=== PATIENT | male | born 1950 | race Caucasian/White ===

== ENCOUNTER 2024-10-25 07:37 | Outpatient (CLI) | payer MEDICARE, SELFPAY | END 2024-10-25 23:59 | disposition home or self-care (01) | LOC: LAB.DROPOF 10-26 07:37 | PROVIDERS: PCP Nurse Practitioner; Visit Provider Nurse Practitioner | DX: R35.0 Frequency of micturition (principal) | CPT/HCPCS: 87086 ==

== ENCOUNTER 2024-12-12 16:07 | Outpatient (CLI) | payer MEDICARE, SELFPAY ==
[2024-12-12 13:48] LABS: Microscopic, Urine URINE MICROSCOPIC (MICROSCOPIC)
[2024-12-12 14:34] LABS: Basophils % 0.5 % (0.1-2.0); Eosinophils # 0.2 Kmm3 (0.0-0.4); Eosinophils % 2.9 % (0.1-12.0); Immature Granulocytes # 0.02 10^3uL; Immature Granulocytes % 0.2 %; Lymphocytes # 1.8 K/mm3 (0.7-4.5); Lymphocytes % 21.5 % (10-50); Mean Corpuscular Hemoglobin 28.2 pg (27.0-31.2); Mean Platelet Volume 11.7 fl (7.4-10.4); Monocytes # 0.8 K/mm3 (0.1-1.0); Monocytes % 9.8 % (1.7-9.3); Neutrophils # 5.4 K/mm3 (1.8-7.8); Neutrophils % 65.1 % (37.0-80.0); Nucleated Red Blood Cells # 0 10^3/uL; Nucleated Red Blood Cells % 0 %; Platelet Count 227 K/mm3 (142-424); Red Blood Count 5.68 M/mm3 (4.60-6.20); Red Cell Distribution Width 14.2 % (11.5-17.5); Red Cell Distribution Width-SD 45.6 fL; White Blood Count 8.2 K/mm3 (4.8-10.8)
[2024-12-12 14:46] LABS: Appearance,Urine SL CLOUDY (Clear); Bilirubin,Urine Negative (Negative); Blood, Urine 2+ (Negative); Color,Urine YELLOW (Yellow); Glucose,Urine (UA) Negative (Negative); Ketones,Urine Negative (Negative); Leukocyte Esterase,Urine TRACE (Negative); Nitrate,Urine Negative (Negative); Protein,Urine 2+ (Negative); Urobilinogen,Urine 0.2 EU/dl (0.2)
[2024-12-12 14:48] LABS: Albumin Level 4.7 g/dl (3.5-5.0); Chloride 109 mmol/L (98-107); Potassium 4.4 mmoL/L (3.5-5.1); Sodium 142 mmol/L (136-145)
[2024-12-12 14:51] LABS: Alanine Aminotransferase 26 U/L (12-78); Alkaline Phosphatase 102 U/L (38-126); Anion Gap 13.4 mEq/L (5-15); Aspartate Amino Transferase 27 U/L (17-59); Bilirubin,Total 0.7 mg/dl (0.2-1.3); Blood Urea Nitrogen 31 mg/dl (9-20); Calcium 10.7 mg/dl (8.4-10.2); Carbon Dioxide 24 mmol/L (22.0-30.0); Estimated Glomerular Filt Rate 59 ml/min (>60); GFR (African American) 72 ML/MIN (>60); Globulin 2.3 g/dL (1.3-3.2); Glucose 132 mg/dl (74-100)
[2024-12-12 14:54] LABS: Specific Gravity, Urine >= 1.030 (1.005-1.030)
[2024-12-12 15:01] LABS: Creatinine,Urine Random 189 mg/dL (Not Estab.)
[2024-12-12 15:33] LABS: Hemoglobin A1C 6.3 % (4.0-6.0)
[2024-12-12 15:35] LABS: Bacteria,Urine 1+ /lpf; Uric Acid Crystals,Urine 4+ /lpf; WBC,Urine Occasional #/hpf (0-3)
[2024-12-12 15:52] LABS: Microalbumin/Creatinine Ratio 458.1
== END 2024-12-12 23:59 | disposition home or self-care (01) ==
LOC: LAB.DROPOF 16:07
PROVIDERS: PCP Internal Medicine; Visit Provider Internal Medicine
DX: Z13.1 Encounter for screening for diabetes mellitus (principal); R30.0 Dysuria; R31.9 Hematuria, unspecified; Z00.00 Encounter for general adult medical examination without abnormal findings
CPT/HCPCS: 80053; 81001; 82043; 82570; 83036; 85025; 87086

== ENCOUNTER 2024-12-27 08:53 | Outpatient (CLI) | payer MEDICARE, SELFPAY ==
--- OUTSIDE RECORDS SUMMARY | 2024-12-27 08:56 | XMS_ITS | Clinical Summary ---
Author Organization Healthcare Address [address] 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 Name Role Phone Eh Palomino DO Primary Care Provider [phone] Social History Tobacco Use Types Packs/Day Years Used Date Smoking Tobacco: Never Assessed Sex and Gender Information Value Date Recorded Sex Assigned at Not on file Legal Sex Male 7:32 PM EDT Gender Identity Not on file Sexual Orientation Not on file Plan of Treatment Upcoming Encounters Date Type Department Care Team (Late st Contact Info) Description 03/10/2025 11:00 AM EDT Office Visit [facility] [address] [facility] [facility], [address] [place] [address] Lavon Tavares MD [address] [place] [phone] Health Maintenance Due Date Last Done Comments [facility]-Depression Screening 1949 [facility]-Hepatitis C Screening 1949 [facility]-Infant/Child/Adol SDOH Screenings 1949 [facility]- SDOH Screenings 12/21/1967 [facility]-Adult SDOH Screenings 12/21/1967 [facility]-DTaP,Tdap,and Td Vaccine s (1 - Tdap) 1968 CT Colonography 1994 Colonoscopy 1994 FIT-DNA 1994 FIT 1994 FOBT 1994 Sigmoidoscopy 1994 [facility]-Colorectal Cancer Screening 1994 [facility]-Pneumococcal Vaccine: 50 + Years (1 of 1 - PCV) 12/21/1999 [facility]-Zoster Vaccines (1 of 2) 12/21/1999 [facility]-BEUCG-20 Vaccine (1 - 20 24-25 season) 2024 [facility]-RSV Vaccine: 60+ Years o r (1 - 1-dose 75+ series) 2024 [facility]-Influenza Vaccine (Seaso n Ended) 2025 HPV Vaccines Aged Out No longer eligi ble based on patient's age to complete this topic [facility]-HIB Vaccines Aged Out No longer e ligible based on patient's age to complete this topic [facility]-Hepatitis A Vaccines Aged Out No longer eligible based on patient's age to complete this topic [facility]-IPV Vaccines Aged Out No longer e ligible based on patient's age to complete this topic [facility]-Rotavirus Vaccines Aged Out No lo nger eligible based on patient's age to complete this topic Care Teams Dry Cell And Battery Assembler Relationship Specialty Start Date End Date Eh Palomino DO [address] [place] [address] [place] [address] PCP - General 12/25/24
[2024-12-27] MEDS: IOPAMIDOL-370 (76%);100ML BOTTLE 90 ML IV (09:29)
[2024-12-27] MEDS: IOPAMIDOL-370 (76%);100ML BOTTLE 60 ML IV (09:29)
[2024-12-27] MEDS: SODIUM CHLORIDE 0.9% 10ML SYR (RAD ONLY) 10 ML IV (09:29)
--- NOTE | 2024-12-27 09:54 | CT_ITS ---
FINAL REPORT TECHNIQUE: Axial CT of the abdomen and pelvis, without and with IV contrast. This study was performed with techniques to keep radiation doses as low as reasonably achievable, (ALARA). Individualized dose reduction techniques using automated exposure control or adjustment of mA and/or kV according to the patient's size were employed. CLINICAL HISTORY: UROGRAM COMPARISON: None FINDINGS: CT ABDOMEN PELVIS WITH AND WITHOUT CONTRAST: Abdomen: Lung bases are clear. Fatty infiltration of the liver is present. Cholelithiasis is present. The spleen, pancreas and adrenal glands are unremarkable. Precontrast imaging shows no renal stone disease. In the upper pole of the left kidney there is a renal mass measuring 19 mm in size without enhancement, consistent with a cyst. There is a posterior left renal mass measuring 6 mm in size, too small to definitively characterize, however most likely represents a cyst. There is a small parapelvic cyst in the lower pole of the right kidney. No bowel obstruction or fluid collection is seen. Pelvis: The appendix is normal in appearance. Mild diverticulosis is noted. Pelvic bowel loops are otherwise unremarkable. Opacification of the distal ureters is unremarkable. There is moderate enlargement of the prostate. There is moderate bladder wall thickening measuring up to 6 mm in diameter, that may represent cystitis. Small bilateral inguinal hernias are present containing fat. No fluid collection or adenopathy is seen. IMPRESSION: 1. No upper urinary tract obstruction or filling defect. 2. Left renal mass, 19 mm, without enhancement consistent with a cyst. A posterior left 6 mm renal mass is too small to definitively characterize without contrast but also likely represents a renal cyst. 3. Moderate bladder wall thickening up to 6 mm is present, concerning for cystitis. Reviewed, Interpreted and Dictated by Zully Hull MD Transcribed by Manuela Bean Authenticated and [facility]
== END 2024-12-27 23:59 | disposition home or self-care (01) ==
LOC: RAD 08:54
PROVIDERS: PCP Internal Medicine; Visit Provider Internal Medicine
DX: N28.1 Cyst of kidney, acquired (principal); N28.89 Other specified disorders of kidney and ureter; R93.41 Abnormal radiologic findings on diagnostic imaging of renal pelvis, ureter, or bladder; R80.9 Proteinuria, unspecified; R31.9 Hematuria, unspecified
CPT/HCPCS: 74178; Q9967

== ENCOUNTER 2025-03-27 13:35 | Outpatient (CLI) | payer MEDICARE, SELFPAY ==
[2025-03-27 16:01] LABS: Prostate Specific Ag, Diagnost 2.44 ng/ml (0.0-4.0)
== END 2025-03-27 23:59 | disposition home or self-care (01) ==
LOC: LAB 13:36
PROVIDERS: PCP Internal Medicine; Visit Provider Urology
DX: N41.0 Acute prostatitis (principal)
CPT/HCPCS: 36415; 84153

== ENCOUNTER 2025-05-07 01:54 | Emergency (ER) | payer MEDICARE, SELFPAY ==
--- OUTSIDE RECORDS SUMMARY | 2025-05-02 22:03 | XMS_ITS | Continuity of Care Document ---
Author Organization [facility] Phone Care Team Providers Care Supervisor Vat House Name Role Phone FREDY COATES Surgeon FREDY COATES Primary Attending DENISSE HARRIS Primary Care Unavailable FREDY COATES Admitting ALLERGIES AND ADVERSE REACTIONS ALLERGIES AND ADVERSE REACTIONS Code System Allergy Substance Adverse Reaction Date Reaction (Severity) Comment Status Reported By Updated By No Known Allergies [id number] on April 30, 2025 12:45:45 PM UT ASSESSMENTS Urinary bladder stone ; FAMILY HISTORY RELATION: Father Status: Cause of : Suicide Age at : 58 SNOMED-CT Diagnosis Age At Onset Information not available RELATION: Mother Status: Cause of : Abdominal aortic aneurysm Age at : Unknown SNOMED-CT Diagnosis Age At Onset Information not available RELATION: Brother Status: Cause of : Leukemia Age at : 40 SNOMED-CT Diagnosis Age At Onset Information not available PROBLEMS PATIENT PROBLEMS Code Description/Comments Category Status Upda delicia By [id number] Urinary bladder stone active [id number] on April 28, 2025 4:13:02 PM [facility] TREATMENT PLAN DISCHARGE MEDICATIONS Status RXNORM Medication Dose Route Frequency Dates Comments U pdated By Continued [id number] Cefdinir Oral Capsule 300 MG 1 TAB ORAL TWICE A DAY Prescribe d: April 28, 2025 4:11:16 PM UT [id number] on April 28, 2025 4:11:16 PM UT Continued [id number] Pyridium Oral Tablet 200 MG 1 TAB ORAL EVERY EIGHT HOURS NEEDED Prescribe d: April 28, 2025 4:11:16 PM UT [id number] on April 28, 2025 4:11:16 PM [facility] Continued [id number] traMADol HCl Oral Tablet 50 MG 1 TAB ORAL EVERY SIX HOURS NEEDED Prescribe d: April 28, 2025 4:11:16 PM UT [id number] on April 28, 2025 4:11:16 PM [facility] PATIENT OPEN ORDERS Code System Descripti on Frequency Occurrenc es Priority Category Start Date Ordering Physician Updated By [id number] DEVI Color of Stone ONE TIME 0 Routine April 28, 2025 5:39:00 PM [facility] ART FREDY Jean [id number] on April 28, 2025 5:41:00 PM [facility] SCHEDULED PROCEDURES Code System Description Status Scheduled Date Upd ated By Patient scheduled procedure information is not available. MEDICATIONS HOME MEDICATIONS Status RXNORM [facility] Medication Dose Route Frequency Dates Comments Reported By Updated By Patient not on Self-Medications [id number] on April 28, 2025 12:50:38 PM [facility] DISCHARGE MEDICATIONS Status RXNORM [facility] Medication Dose Route Frequency Dates Dis pense Data Comments Physician Updated By [facility] ed [id number] Cefdinir Oral Capsule 300 MG 1.0 TAB ORAL TWICE A DAY Prescr ibed: [facility] 2024 4:11:1 6 PM [facility] ART FREDY Jean PHY [id number] on April 28, 2025 4:11:16 PM [facility] Continu ed [id number] [id number] 201 Pyridium Oral Tablet 200 MG 1.0 TAB ORAL EVERY EIGHT HOURS NEEDED Prescr ibed: [facility] 2024 4:11:1 6 PM [facility] ART FREDY Jean PHY [id number] on April 28, 2025 4:11:16 PM [facility] Continu ed [id number] 4037 708 traMADol HCl Oral Tablet 50 MG 1.0 TAB ORAL EVERY SIX HOURS NEEDED Prescr ibed: [facility] 2024 4:11:1 6 PM [facility] ART FREDY S PHY [id number] on April 28, 2025 4:11:16 PM [facility] INPATIENT MEDICATIONS Status RXNORM [facility] Medication Dose Route Frequency Rat e Quantity Dates Indication Dispense Data Comments Physician Updated [facility] [id number] [phone] LACTATED RINGERS SOLN 1000. 0 ML INTRAV ENOUS ONE TIME ONLY (PACU) 25.0 ML/HR Start: Juan Antonio 2024 2:17:0 0 PM [facility] End: [facility] 2024 4:11:1 6 PM [facility] HEIDI SABIHA [id number] on April 29, 2025 4:25:00 AM UTC Discont inued [id number] 0040 9117 630 meperidine (DEMEROL) 25 MG/ML SOLN 12.5 MG INTRAV ENOUS NEEDED (PACU) Start: [facility] 2024 2:17:0 0 PM UTC End: [facility] 2024 4:11:1 6 PM UTC HEIDI SABIHA [id number] on April 29, 2025 4:25:00 AM UTC Discont inued [id number] 0040 9117 630 meperidine (DEMEROL) 25 MG/ML SOLN 25.0 MG INTRAV ENOUS NEEDED (PACU) Start: [facility] 2024 2:17:0 0 PM UTC End: [facility] 2024 4:11:1 6 PM UTC HEIDI SABIHA [id number] on April 29, 2025 4:25:00 AM UTC Discont inued [id number] 0064 1624 725 fentaNYL (SUBLIMAZE) VIAL 50 MGC/ML SOLN 25.0 MCG INTRAV ENOUS EVERY 5 MINUTES NEEDED (PACU) Start: Oct[facility] 2024 2:17:0 0 PM UTC End: [facility] 2024 4:11:1 6 PM UTC HEIDI SABIHA [id number] on April 29, 2025 4:25:00 AM UTC Discont inued [id number] 0064 1624 725 fentaNYL (SUBLIMAZE) VIAL 50 MGC/ML SOLN 50.0 MCG INTRAV ENOUS EVERY 5 MINUTES NEEDED (PACU) Start: [facility] 2024 2:17:0 0 PM UTC End: [facility] 2024 4:11:1 6 PM UTC HEIDI SABIHA [id number] on April 29, 2025 4:25:00 AM UTC Discont inued [id number] 0262 9426 401 HYDROmorpho ne (DILAUDID) 0.5 MG/0.5ML SOLN 0.5 MG INTRAV ENOUS EVERY 10 MINUTES NEEDED (PACU) Start: [facility] 2024 2:17:0 0 PM UTC End: [facility] 2024 4:11:1 6 PM UTC HEIDI SABIHA [id number] on April 29, 2025 4:25:00 AM UTC Discont inued [id number] 9647 9128 331 HYDROmorpho ne (DILAUDID) 1 MG/ML SOLN 1.0 MG INTRAV ENOUS EVERY 10 MINUTES NEEDED (PACU) Start: [facility] 2024 2:17:0 0 PM UTC End: [facility] 2024 4:11:1 6 PM UTC HEIDI SABIHA [id number] on April 29, 2025 4:25:00 AM UTC Discont inued [id number] 2115 8016 250 PERCOCET 5-325 MG TABS 1.0 TAB ORAL ONE TIME ADMINISTRA TION (UNSCHEDUL ED) Start: [facility] 2024 2:17:0 0 PM UTC End: [facility] 2024 8:17:0 0 PM UTC HEIDI SABIHA [id number] on April 29, 2025 4:25:00 AM UTC Discont inued [id number] 5834 5613 000 ondansetron (ZOFRAN) INJ 4 MG/2 ML SOLN 4.0 MG INTRAV ENOUS NEEDED (PACU) Start: [facility] 2024 2:17:0 0 PM UTC End: [facility] 2024 4:11:1 6 PM UTC HEIDI SABIHA [id number] on April 29, 2025 4:25:00 AM UTC Discont inued [id number] 0051 7970 201 droperidol (INAPSINE) 2.5 MG/ML SOLN 0.625 MG INTRAV ENOUS NEEDED (PACU) Start: [facility] 2024 2:17:0 0 PM UTC End: [facility] 2024 4:11:1 6 PM UTC HEIDI SABIHA [id number] on April 29, 2025 4:25:00 AM UTC Discont inued [id number] 0255 3045 112 midazolam (VERSED) 2 MG/2 ML SOLN 1.0 MG INTRAV ENOUS EVERY FIVE MINUTES NEEDED Start: Oct[facility] 2024 2:17:0 0 PM UTC End: [facility] 2024 4:11:1 6 PM UTC HEIDI SABIHA [id number] on April 29, 2025 4:25:00 AM UTC Discont inued [id number] 6337 3041 112 midazolam (VERSED) 2 MG/2 ML SOLN 2.0 MG INTRAV ENOUS NEEDED (PACU) [facility] 4:[facility]1 6 PM UTC HEIDI SABIHA [id number] on April 29, 2025 4:25:00 AM UTC Discont inued [id number] [id number] 1092 825 promethazin e (PHENERGAN) 25 MG/ML SOLN 12.5 MG INTRAV ENOUS NEEDED (PACU) [facility] 2:17[facility]0 0 PM [facility] 4:11:1 6 PM UTC HEIDI SABIHA [id number] on April 29, 2025 4:25:00 AM UTC Discont inued [id number] 011 promethazin e (PHENERGAN) 12.5 MG GEL 12.5 MG TOPICA L NEEDED (PACU) [facility] 2:17:0 0 PM UTC [facility] 4:11:1 6 PM UTC HEIDI SABIHA [id number] on April 29, 2025 4:25:00 AM UTC Discont inued [id number] 0592 5623 105 ceFAZolin (ANCEF) 2 GM SOLR 2.0 GM INTRAV ENOUS ONE TIME ONLY (SCHEDULED DOSE) [facility] 12:56: 00 PM UTC [facility] 12:56: 00 PM UTC ART FREDY S INTERFAC ED on April 28, 2025 12:55:00 PM UTC Discont inued [id number] 1084 7084 001 ceFAZolin (ANCEF) 2 GM SOLR 2.0 GM INTRAV ENOUS ONE TIME ADMINISTRA TION (UNSCHEDUL ED) [facility]: [facility] 10:00: 00 AM UTC End: [facility] 2024 1:10:5 0 PM UTC RACIEL SNOW [id number] on April 28, 2025 1:10:00 PM UTC Discont inued [id number] 2874 9909 332 PACU - fentaNYL (SUBLIMAZE) 100 MCG/2ML SOLN 100.0 MCG INTRAV ENOUS ONE TIME ONLY (SCHEDULED DOSE) Start: [facility] 2024 1:58:0 0 PM UTC End: [facility] 2024 1:58:0 0 PM UTC ART FREDY S INTERFAC ED on April 28, 2025 1:57:00 PM UTC Discont inued [id number] 1498 9301 305 lidocaine (XYLOCAINE) 2% UROJET GEL 10.0 ML ONE TIME ONLY (SCHEDULED DOSE) Start: [facility] 2024 2:00:0 0 PM UTC End: [facility] 2024 2:00:0 0 PM UTC ART FREDY S INTERFAC ED on April 28, 2025 1:59:00 PM UTC Discont inued [id number] 0835 9020 901 PROPOFOL 200 MG/20ML EMUL 200.0 MG INTRAV ENOUS ONE TIME ONLY (SCHEDULED DOSE) 8.333 MG/HR Start: [facility] 2024 6:43:0 0 PM UTC End: [facility] 2024 6:51:3 9 PM UTC ART FREDY S [id number] on April 28, 2025 6:51:00 PM UTC Discont inued [id number] 7493 3016 505 DEXAMETHASO NE SODIUM PHOSPHATE 20.0 MG INTRAV ENOUS ONE TIME ONLY (SCHEDULED DOSE) 0.833 MG/HR Start: [facility] 2024 6:43:0 0 PM UTC End: [facility] 2024 6:51:3 9 PM UTC ART FREDY S [id number] on April 28, 2025 6:51:00 PM UTC Discont inued [id number] 0635 5613 000 ONDANSETRON HCL 4 MG/2ML SOLN 4.0 MG INTRAV ENOUS ONE TIME ONLY (SCHEDULED DOSE) 0.167 MG/HR Start: [facility] 2024 6:43:0 0 PM UTC End: [facility] 2024 6:51:3 9 PM UTC ART FREDY S [id number] on April 28, 2025 6:51:00 PM UTC Discont inued [id number] 7604 217 EPHEDRINE SULFATE (PRESSORS) 5 50.0 MG INTRAV ENOUS ONE TIME ONLY (SCHEDULED DOSE) 2.083 MG/HR [facility] 6:[facility]0 0 PM [facility] 6:51:3 9 PM UTC ART FREDY Jean [id number] on April 28, 2025 6:51:00 PM UTC Discont inued [id number] 6901 101 PHENYLEPHRI NE HCL (PRESSORS) 1 1.0 MG INTRAV ENOUS ONE TIME ONLY (SCHEDULED DOSE) 0.042 MG/HR Start: [facility] r 2024 6:43:0 0 PM UTC [facility] 6:51:3 9 PM UTC ART FREDY S [id number] on April 28, 2025 6:51:00 PM UTC Discont inued [id number] 2622 8011 704 LACTATED RINGERS SOLN 1000. 0 ML IV CONTIN UOUS ONE TIME ONLY (SCHEDULED DOSE) Start: [facility] 2024 12:03: 00 PM UTC End: [facility] 2024 12:03: 00 PM UT ART FREDY Jean INTERFAC ED on April 28, 2025 4:00:00 AM [facility] SOCIAL HISTORY SOCIAL HISTORY - Smoking Status SNOMED-CT Social History Element Description Effective Dates Offered Cessation Comment Updated By [id number] Current Tobacco smoking status Never Smoked [id number] on April 24, 2025 8:03:53 PM UT [id number] Historical Tobacco smoking status Unknown If Ever Smoked [id number] on April 30, 2025 2:09:18 AM [facility] SOCIAL HISTORY - Gender Sex: Male SOCIAL HISTORY - Status : status i nformation is not available Intention in Next Year: intention information is not available SOCIAL HISTORY - Assessments Code System Description Status Date Value of Assessment Updated By Comment Assessment Information is no t available SOCIAL HISTORY - [place] Affiliation [place] information is not av ailable SOCIAL HISTORY - Legal Sex Legal Sex information is not available SOCIAL HISTORY - Sexual Behavior Sexual Orientation Gender Identity SNOMED-CT Description SNO MED -CT Description Activity Level No of Partners Partner Type UpdatedBy Information is not available SOCIAL HISTORY - Occupation Occupation information is no t available PROCEDURES PATIENT PROCEDURES Procedure information is not available. PROCEDURE NOTE Note Title Operative/Procedure Note Date Of Service April 28, 2025 4:0 8:16 PM UT Created By [id number] on April 032024 4:08:16 PM [facility] Signed By [id number] on April 032024 4:09:49 PM [facility] Pre-Procedure Diagnosis Bladder stones Post- Procedure Diagnosis Same Procedure / Surgery None Cystolitholapaxy greater than 2.5 cm Anesthesia Type General anesthesia Estimated Blood Loss Minimal Complications None Procedure Description / Findings After informed consent was obtained from the patient, he was taken the operating room where he was placed in a comfortable supine position on the procedure table. Time-out performed confirming correct patient, correct procedure, and correct operative site. General anesthesia was induced and preoperative IV antibiotics were administered. He was then placed in a dorsal lithotomy position and genitals prepped and draped in the usual sterile fashion. We inserted the rigid cystoscope in the bladder and visualized the entire mucosa. Over 2 dozen stones were present with the largest measuring approximately 2.5-3 cm. A 550 micron fiber was advanced and we began cystolitholapaxy. Total laser time approach nearly 2 hours, however, we are able to irrigate all fragments out successfully. We then inspected the urothelium with no signs of injury or perforation. Bladder was drained through the cystoscope sheath and lidocaine 2% gel was instilled in the urethra. The procedure was terminated, patient was awoken and transferred to the PACU in stable condition Specimens Bladder stone Tubes/Drains None Implants None Disposition of Patient Stable to PACU Electronically signed by KELY LACY on 1209 HEALTH CONCERNS Problems Concern Status Health Concern problem infor mation not available. Smoking Status Status Years Used Consumed packs p er day Health Concern smoking histo ry information not available. Family History Concern Status Health Concern family histor y information not available. ENCOUNTERS ENCOUNTER INFORMATION Reason for Visit CYSTOLITHOLAPXY Admission April 28, 2025 12:17:[address] [id number] Discharge April 28, 2025 8:17:00 PM [facility] DISCHARGED TO HOME OR SELF CARE ENCOUNTER DIAGNOSES Notes information is not ty ilable. Code System Diagnosis Onset Date Diagnosis information is not available. ABSTRACT DIAGNOSES Code System Diagnosis Updated By Abatement Date R35.0 ICD10 FREQUENCY OF MICTURITION AAD 6617 on April 30, 2025 1:13:17 PM [facility] N21.0 ICD10 CALCULUS IN BLADDER [id number] on April 30, 2025 1:13:17 PM UTC G47.30 ICD10 SLEEP APNEA, UNSPECIFIED AAD 6617 on April 30, 2025 1:13:17 PM UTC M19.90 ICD10 UNSPECIFIED OSTE OARTHRITIS, UNSPECIFIED SITE [id number] on April 30, 2025 1:13:17 PM UTC M25.50 ICD10 PAIN IN UNSPECIFIED JOINT AA D6617 on April 30, 2025 1:13:17 PM UTC Z87.442 ICD10 PERSONAL HISTORY OF URINARY CALCULI [id number] on April 30, 2025 1:13:17 PM UT Z79.899 ICD10 OTHER DIRECTOR OF ENTERTAINMENT (CURRENT) DRUG THERAPY [id number] on April 30, 2025 1:13:17 PM UT CARE TEAM Care Supervisor Vat House Role FREDY COATES Surgeon FREDY COATES Primary Attending DENISSE HARRIS Primary Care FREDY COATES Admitting HOSPITAL DISCHARGE INSTRUCTION DISCHARGE INSTRUCTION Encounter [id number] Admit Date April 28, 2025 12: 17:00 PM UT Discharge Date April 28, 2025 8:1 7:00 PM [facility] PATIENT EDUCATION SUMMARY Patient/Visit Information: Patient Name: GUADALUPE Menchaca CASE Diag: Attending Caregiver: KELY Jean Discharge Instruction Sheets Provided: Anesthesia, [facility] DC Instructions After BEFAST-Stroke Warning Signs Discharge Information Dr. Coates- CYTOSCOPY/URETEROSCOPY/ESWL Fall Prevention in Hospitals and in the Home [facility] - Medication Management KYNECT- HELP Medication Side Effects Suicide - Managing your Feelings Patient Instructions: Followup Appointments/Instructions: CARE TEAM CARE senior painter Role on Team Location Telecom Status Start Date End Jasen e Updated By KELY LACY Surgeon normal April 28, 2025 12:17:00 PM UT April 28, 2025 8:17:00 PM UT [id number] on April 30, 2025 1:13:23 PM UT STEVEN Graham PCP normal April 28, 2025 12:19:46 PM UTC April 28, 2025 8:17:00 PM UT [id number] on April 30, 2025 1:13:23 PM UT NO DEFINED PRIMARY C PCP normal April 24, 2025 1:14:59 PM UTC April 28, 2025 12:19:46 PM UT [id number] on April 30, 2025 1:13:23 PM UT KELY LACY Attending normal April 24, 2025 1:14:59 PM [facility] April 28, 2025 8:17:00 PM [facility] [id number] on April 30, 2025 1:13:23 PM [facility] KELY LACY Admitting normal April 24, 2025 1:14:59 PM [facility] April 28, 2025 8:17:00 PM [facility] [id number] on April 30, 2025 1:13:23 PM [facility]
--- OUTSIDE RECORDS SUMMARY | 2025-05-06 12:48 | XMS_ITS | Continuity of Care Document ---
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 Name Role Phone FREDY COATES Unavailable DENISSE HARRIS Unavailable Unavailable DENISSE HARRIS Primary Care Unavailable MERI VANEGAS Admitting MREI VANEGAS Primary Attending ALLERGIES AND ADVERSE REACTIONS ALLERGIES AND ADVERSE REACTIONS Code System Allergy Substance Adverse Reaction Date Reaction (Severity) Comment Status Reported By Updated By No Known Allergies [email or web address] on April 30, 2025 12:45:45 PM UTC ASSESSMENTS Postprocedural retention of urine ; Pyelonephritis ; FAMILY HISTORY RELATION: Father Status: Cause [...] PATIENT PROBLEMS Code Description/Comments Category Status Upda yadira By [id number] Sepsis completed [email or web address] on May 01, 2025 2:15:58 PM [place] [id number] Postprocedural reten tion of urine active [id number] on April 30, 2025 4:02:46 AM UT [id number] Pyelonephritis active [id number] on April 30, 2025 4:02:56 AM UTC RESULTS Patient: KOSTAS Menchaca Date of : 1950 1 LABORATORY RESULTS ORDER 100: CBC AUTO W DIFF ( LOINC: 47463-4) ORDER DATE: April 30, 2025 2:18:00 AM UTC Specimen Source: EDTA Specimen Type: Blood specime n with EDTA PERFORMING LAB: [facility] [address] [facility] [id number] Result Comment: Final Result Date: April 30, 2025 2:41:00 AM UTC (TECH: [employer]) LOINC TEST FLAG RESULT REFERENCE RANGE UPDA YADIRA BY 6690-2 Leukocytes [#/volume] in Blood by Automated count H 17.7 K/ul 4.0 K/ul - 10.5 K/ul April 30, 2025 2:41:00 AM UTC (TECH: [employer]) 789-8 Erythrocytes [#/volume] in Blood by Automated count N 5.1 M/mm3 4.7 M/mm3 - 6.1 M/mm3 April 30, 2025 2:41:00 AM UTC (TECH: [employer]) 718-7 Hemoglobin [Mass/volume] in Blood N 14.6 gm/dl 13.5 gm/dl - 18.0 gm/dl April 30, 2025 2:41:00 AM UTC (TECH: [employer]) 30718-6 Hematocrit [Volume Fraction] of Blood N 44.7 % 42.0 % - 52.0 % April 30, 2025 2:41:00 AM UTC (TECH: [employer]) 787-2 Erythrocyte mean corpuscular volume [Entitic volume] by Automated count N 88.3 fl 78 fl - 100 fl April 30, 2025 2:41:00 AM UTC (TECH: [employer]) 785-6 Erythrocyte mean corpuscular hemoglobin [Entitic mass] by Automated count N 28.9 pg 27 pg - 31 pg April 30, 2025 2:41:00 AM UTC (TECH: [employer]) 786-4 Erythrocyte mean corpuscular hemoglobin concentration [Mass/volume] by Automated count N 32.7 g/dl 32 g/dl - 36 g/dl April 30, 2025 2:41:00 AM UTC (TECH: [employer]) 44647-3 Erythrocyte distribution width [Ratio] H 14.4 % 11.5 % - 14.0 % April 30, 2025 2:41:00 AM UTC (TECH: [employer]) 777-3 Platelets [#/volume] in Blood by Automated count N 251 K/ul 150 K/ul - 450 K/ul April 30, 2025 2:41:00 AM UTC (TECH: ME) 87489-1 Platelet mean volume [Entitic volume] in Blood by Automated count H 10.2 fl 6 fl - 9.5 fl April 30, 2025 2:41:00 AM UTC (TECH: [employer]) 04215-3 Neutrophils/100 leukocytes in Blood H 86.0 % 43 % - 65 % April 30, 2025 2:41:00 AM UTC (TECH: [employer]) 736-9 Lymphocytes/100 leukocytes in Blood by Automated count L 5.2 % 20.5 % - 45.5 % April 30, 2025 2:41:00 AM UTC (TECH: [employer]) 5905-5 Monocytes/100 leukocytes in Blood by Automated count N 8.0 % 5.5 % - 11.7 % April 30, 2025 2:41:00 AM UTC (TECH: [employer]) 713-8 Eosinophils/100 leukocytes in Blood by Automated count L 0.1 % 0.9 % - 2.9 % April 30, 2025 2:41:00 AM UTC (TECH: [employer]) 706-2 Basophils/100 leukocytes in Blood by Automated count L 0.1 % 0.2 % - 1.0 % April 30, 2025 2:41:00 AM UTC (ICONOGRAFICO: [employer]) 60222-5 Immature granulocytes/100 leukocytes in Blood by Automated count N 0.6 % 0.0 % - 0.8 % April 30, 2025 2:41:00 AM UTC (TECH: [employer]) 71358-7 Nucleated cells [#/volume] in Blood N 0.0 % April 30, 2025 2:41:00 AM UTC (TECH: [employer]) 67028-2 Neutrophils [#/volume] in Blood H 15.3 K/uL 2.2 K/uL - 4.8 K/uL April 30, 2025 2:41:00 AM UTC (TECH: [employer]) 731-0 Lymphocytes [#/volume] in Blood by Automated count L 0.9 CELL/MCL 1.3 CELL/MCL - 2.9 CELL/MCL April 30, 2025 2:41:00 AM UTC (TECH: [employer]) 742-7 Monocytes [#/volume] in Blood by Automated count H 1.4 CELL/MCL 0.3 CELL/MCL - 0.8 CELL/MCL April 30, 2025 2:41:00 AM UTC (TECH: ME) 711-2 Eosinophils [#/volume] in Blood by Automated count N 0.0 CELL/MCL 0 CELL/MCL - 0.2 CELL/MCL April 30, 2025 2:41:00 AM UTC (TECH: ME) 704-7 Basophils [#/volume] in Blood by Automated count N 0.0 CELL/MCL 0.0 CELL/MCL - 1.0 CELL/MCL April 30, 2025 2:41:00 AM UTC (TECH: ME) 49604-7 Immature granulocytes [#/volume] in Blood N 0.10 K/ul April 30, 2025 2:41:00 AM UTC (TECH: ME) 62105-3 Nucleated cells [#/volume] in Blood N 0.00 K/uL April 30, 2025 2:41:00 AM [place] (TECH: ME) 51131-7 Manual Differential panel - Blood N NO April 30, 2025 2:41:00 AM UT (TECH: ME) ORDER 200: COMP METABOLIC PA LATOSHA (LOINC: 72541-1) ORDER DATE: April 30, 2025 2:18:00 AM UT Specimen Source: PLASMA Specimen Type: Plasma specim en PERFORMING LAB: [address] [id number] Result Comment: Final Result Date: April 30, 2025 2:56:00 AM UT (TECH: AY) LOINC TEST FLAG RESULT REFERENCE RANGE UPDA YADIRA BY 2951-2 Sodium [Moles/volume ] in Serum or Plasma N 139 mmol/L 136 mmol/L - 145 mmol/L April 30, 2025 2:56:00 AM UT (TECH: AY) 2823-3 Potassium [Moles/volume] in Serum or Plasma N 4.2 mmol/L 3.6 mmol/L - 5.0 mmol/L April 30, 2025 2:56:00 AM UT (TECH: AY) 2075-0 Chloride [Moles/volu me] in Serum or Plasma N 104 mmol/L 98 mmol/L - 107 mmol/L April 30, 2025 2:56:00 AM UT (TECH: AY) 9 Carbon dioxide, tota l [Moles/volume] in Serum or Plasma N 25.2 mmol/L 21.0 mmol/L - 32.0 mmol/L April 30, 2025 2:56:00 AM UT (TECH: AY) 29836-1 Anion gap in Blood N 14.0 O ct2024 2:56:00 AM UT (TECH: AY) 2345-7 Glucose [Mass/volume ] in Serum or Plasma H 168 mg/dl 70 mg/dl - 120 mg/dl April 30, 2025 2:56:00 AM UT (TECH: AY) 6299-2 Urea nitrogen [Mass/volume] in Blood H 43 mg/dL 7 mg/dL - 18 mg/dL April 30, 2025 2:56:00 AM UT (TECH: AY) 47356-8 Creatinine [Moles/volume] in Blood H 3.9 mg/dL 0.6 mg/dL - 1.3 mg/dL April 30, 2025 2:56:00 AM [facility] (TECH: AY) 22824-8 Glomerular filtratio n rate/1.73 sq M.predicted by Creatinine-based formula (MDRD) L 15 mlpermin 60 mlpermin April 30, 2025 2:56:00 AM [facility] (TECH: AY) 84674-1 Osmolality of Serum or Plasma by calculated by sum of electrolytes H 304 mosm/kg 275 mosm/kg - 301 mosm/kg April 30, 2025 2:56:00 AM [facility] (TECH: AY) 2885-2 Protein [Mass/volume ] in Serum or Plasma N 7.2 g/dl 6.4 g/dl - 8.2 g/dl April 30, 2025 2:56:00 AM UT (TECH: AY) 1751-7 Albumin [Mass/volume ] in Serum or Plasma N 4.1 g/dl 3.4 g/dl - 5.0 g/dl April 30, 2025 2:56:00 AM UT (TECH: AY) 2336-6 Globulin [Mass/volum e] in Serum N 3.1 April 30, 2025 2:56:00 AM [facility] (TECH: AY) 1759-0 Albumin/Globulin [Ma ss Ratio] in Serum or Plasma N 1.3 0.7 - 2 April 30, 2025 2:56:00 AM [facility] (TECH: AY) 65424-9 Calcium [Mass/volume ] in Serum or Plasma N 8.9 mg/dl 8.5 mg/dl - 10.5 mg/dl April 30, 2025 2:56:00 AM [facility] (TECH: AY) 1975-2 Bilirubin.total [Mass/volume] in Serum or Plasma N 0.60 mg/dL 0.10 mg/dL - 1.00 mg/dL April 30, 2025 2:56:00 AM [facility] (TECH: AY) 1920-8 Aspartate aminotransferase [Enzymatic activity/volume] in Serum or Plasma N 21 U/L 0 U/L - 37 U/L April 30, 2025 2:56:00 AM UT (TECH: AY) 1742-6 Alanine aminotransferase [Enzymatic activity/volume] in Serum or Plasma N 24 U/L 0 U/L - 65 U/L April 30, 2025 2:56:00 AM [facility] (TECH: AY) 6768-6 Alkaline phosphatase [Enzymatic activity/volume] in Serum or Plasma H 119 U/L 46 U/L - 116 U/L April 30, 2025 2:56:00 AM [facility] (TECH: AY) ORDER 300: LACTIC ACID (LOIN C: 2524-7) ORDER DATE: April 30, 2025 2:18:00 AM UT Specimen Source: PLASMA Specimen Type: Plasma specim en PERFORMING LAB: [address] [id number] Result Comment: Final Result Date: April 30, 2025 2:59:00 AM [facility] (TECH: AY) LOINC TEST FLAG RESULT REFERENCE RANGE UPDA YADIRA BY 2524-7 Lactate [Moles/volume] in Serum or Plasma H 2.2 mmol/L 0.4 mmol/L - 2.0 mmol/L April 30, 2025 2:59:00 AM UT (TECH: AY) ORDER 500: LACTIC ACID 3 BAUDILIO R (LOINC: 2524-7) ORDER DATE: April 30, 2025 2:59:00 AM UT Specimen Source: PLASMA Specimen Type: Plasma specim en PERFORMING LAB: [address] [id number] Result Comment: Final Result Date: April 30, 2025 7:28:00 AM UT (TECH: AY) LOINC TEST FLAG RESULT REFERENCE RANGE UPDA AYDIRA BY 2524-7 Lactate [Moles/volume] in Serum or Plasma H 2.4 mmol/L 0.4 mmol/L - 2.0 mmol/L April 30, 2025 7:28:00 AM UTC (TECH: AY) ORDER 800: PT PROTHROMBIN TI ME W INR (LOINC: 70324-2) ORDER DATE: April 30, 2025 3:22:00 AM UTC Specimen Source: PLASMA Specimen Type: Plasma specim en PERFORMING LAB: [address] [id number] Result Comment: Final Result Date: April 30, 2025 3:58:00 AM UTC (TECH: ME) LOINC TEST FLAG RESULT [place] [address]-8 INR in Platelet poor plasma or blood by Coagulation assay N 11.2 SECONDS 9.3 SECONDS - 11.4 SECONDS April 30, 2025 3:58:00 AM UTC (TECH: ME) 6301-6 INR in Platelet poor plasma by Coagulation assay H 1.1 Ratio 0.97 Ratio - 1.05 Ratio April 30, 2025 3:58:00 AM UTC (TECH: ME) ORDER 900: PROCALCITONIN (LO INC: 56595-0) ORDER DATE: April 30, 2025 3:22:00 AM UTC Specimen Source: PLASMA Specimen Type: Plasma specim en PERFORMING LAB: [address] [id number] Result Comment: Final Result Date: April 30, 2025 3:50:00 AM UT (TECH: AY) LOINC TEST FLAG RESULT [place] [address]-5 Procalcitonin [Mass/volume] in Serum or Plasma by Immunoassay N 0.05 ng/mL 0.00 ng/mL - 0.5 ng/mL April 30, 2025 3:50:00 AM UTC (TECH: AY) ORDER 1000: PTT PARTIAL THRO MB TIME (LOINC: 3173-2) ORDER DATE: April 30, 2025 3:22:00 AM UTC Specimen Source: PLASMA Specimen Type: Plasma specim en PERFORMING LAB: [address] [id number] Result Comment: Final Result Date: April 30, 2025 3:58:00 AM UTC (TECH: ME) LOINC TEST FLAG RESULT REFERENCE RANGE UPDA YADIRA BY 3173-2 Activated partial thromboplastin time (aPTT) in Blood by Coagulation assay L 23.0 SECONDS 24.5 SECONDS - 32.8 SECONDS April 30, 2025 3:58:00 AM UT (TECH: [employer]) ORDER 1701: CBC AUTO W DIFF (LOINC: 64181-2) ORDER DATE: April 30, 2025 4:08:00 AM UT Specimen Source: EDTA Specimen Type: Blood specime n with EDTA PERFORMING LAB: [address] [id number] Result Comment: Final Result Date: April 30, 2025 10:29:00 AM UT (TECH: [employer]) [facility] TEST FLAG RESULT REFERENCE RANGE UPDA YADIRA BY 6690-2 Leukocytes [#/volume] in Blood by Automated count H 12.6 K/ul 4.0 K/ul - 10.5 K/ul April 30, 2025 10:29:00 AM UT (TECH: [employer]) 789-8 Erythrocytes [#/volume] in Blood by Automated count L 4.5 M/mm3 4.7 M/mm3 - 6.1 M/mm3 April 30, 2025 10:29:00 AM UT (TECH: [employer]) 718-7 Hemoglobin [Mass/volume] in Blood L 12.9 gm/dl 13.5 gm/dl - 18.0 gm/dl April 30, 2025 10:29:00 AM UT (TECH: [employer]) 73667-2 Hematocrit [Volume Fraction] of Blood L 40.6 % 42.0 % - 52.0 % April 30, 2025 10:29:00 AM UT (TECH: [employer]) 787-2 Erythrocyte mean corpuscular volume [Entitic volume] by Automated count N 89.6 fl 78 fl - 100 fl April 30, 2025 10:29:00 AM UT (TECH: [employer]) 785-6 Erythrocyte mean corpuscular hemoglobin [Entitic mass] by Automated count N 28.5 pg 27 pg - 31 pg April 30, 2025 10:29:00 AM UT (TECH: [employer]) 786-4 Erythrocyte mean corpuscular hemoglobin concentration [Mass/volume] by Automated count L 31.8 g/dl 32 g/dl - 36 g/dl April 30, 2025 10:29:00 AM UTC (TECH: [employer]) 82955-1 Erythrocyte distribution width [Ratio] H 14.5 % 11.5 % - 14.0 % April 30, 2025 10:29:00 AM UTC (TECH: [employer]) 777-3 Platelets [#/volume] in Blood by Automated count N 222 K/ul 150 K/ul - 450 K/ul April 30, 2025 10:29:00 AM UTC (TECH: [employer]) 79188-7 Platelet mean volume [Entitic volume] in Blood by Automated count H 11.3 fl 6 fl - 9.5 fl April 30, 2025 10:29:00 AM UTC (TECH: [employer]) 10844-1 Neutrophils/100 leukocytes in Blood H 77.7 % 43 % - 65 % April 30, 2025 10:29:00 AM UTC (TECH: [employer]) 736-9 Lymphocytes/100 leukocytes in Blood by Automated count L 11.6 % 20.5 % - 45.5 % April 30, 2025 10:29:00 AM UTC (TECH: [employer]) 5905-5 Monocytes/100 leukocytes in Blood by Automated count N 9.8 % 5.5 % - 11.7 % April 30, 2025 10:29:00 AM UTC (TECH: [employer]) 713-8 Eosinophils/100 leukocytes in Blood by Automated count L 0.2 % 0.9 % - 2.9 % April 30, 2025 10:29:00 AM UTC (TECH: [employer]) 706-2 Basophils/100 leukocytes in Blood by Automated count N 0.2 % 0.2 % - 1.0 % April 30, 2025 10:29:00 AM UTC (TECH: [employer]) 59868-1 Immature granulocytes/100 leukocytes in Blood by Automated count N 0.5 % 0.0 % - 0.8 % April 30, 2025 10:29:00 AM UTC (TECH: [employer]) 82537-0 Nucleated cells [#/volume] in Blood N 0.0 % April 30, 2025 10:29:00 AM UTC (TECH: [employer]) 32555-7 Neutrophils [#/volume] in Blood H 9.8 K/uL 2.2 K/uL - 4.8 K/uL April 30, 2025 10:29:00 AM UTC (TECH: SHG) 731-0 Lymphocytes [#/volume] in Blood by Automated count N 1.5 CELL/MCL 1.3 CELL/MCL - 2.9 CELL/MCL April 30, 2025 10:29:00 AM UTC (TECH: SHG) 742-7 Monocytes [#/volume] in Blood by Automated count H 1.2 CELL/MCL 0.3 CELL/MCL - 0.8 CELL/MCL April 30, 2025 10:29:00 AM UTC (TECH: SHG) 711-2 Eosinophils [#/volume] in Blood by Automated count N 0.0 CELL/MCL 0 CELL/MCL - 0.2 CELL/MCL April 30, 2025 10:29:00 AM UTC (TECH: SHG) 704-7 Basophils [#/volume] in Blood by Automated count N 0.0 CELL/MCL 0.0 CELL/MCL - 1.0 CELL/MCL April 30, 2025 10:29:00 AM UTC (TECH: SHG) 76029-3 Immature granulocytes [#/volume] in Blood N 0.06 K/ul April 30, 2025 10:29:00 AM UTC (TECH: SHG) 96732-2 Nucleated cells [#/volume] in Blood N 0.00 K/uL April 30, 2025 10:29:00 AM UT (TECH: SHG) 04258-9 Manual Differential panel - Blood N NO April 30, 2025 10:29:00 AM UT (TECH: SHG) ORDER 1702: CBC AUTO W DIFF (LOINC: 04798-0) ORDER DATE: April 30, 2025 4:08:00 AM UT Specimen Source: EDTA Specimen Type: Blood specime n with EDTA PERFORMING LAB: [address] [id number] Result Comment: Final Result Date: May 01, 2025 9:59:00 AM UT (TECH: AAC) LOINC TEST FLAG RESULT REFERENCE RANGE UPDA YADIRA BY 6690-2 Leukocytes [#/volume] in Blood by Automated count N 9.7 K/ul 4.0 K/ul - 10.5 K/ul May 01, 2025 9:59:00 AM UTC (TECH: AAC) 789-8 Erythrocytes [#/volume] in Blood by Automated count L 4.4 M/mm3 4.7 M/mm3 - 6.1 M/mm3 May 01, 2025 9:59:00 AM UTC (TECH: AAC) 718-7 Hemoglobin [Mass/volume] in Blood L 12.5 gm/dl 13.5 gm/dl - 18.0 gm/dl May 01, 2025 9:59:00 AM UTC (TECH: AAC) 79508-8 Hematocrit [Volume Fraction] of Blood L 39.5 % 42.0 % - 52.0 % May 01, 2025 9:59:00 AM UTC (TECH: AAC) 787-2 Erythrocyte mean corpuscular volume [Entitic volume] by Automated count N 89.8 fl 78 fl - 100 fl May 01, 2025 9:59:00 AM UTC (TECH: AAC) 785-6 Erythrocyte mean corpuscular hemoglobin [Entitic mass] by Automated count N 28.4 pg 27 pg - 31 pg May 01, 2025 9:59:00 AM UTC (TECH: AAC) 786-4 Erythrocyte mean corpuscular hemoglobin concentration [Mass/volume] by Automated count L 31.6 g/dl 32 g/dl - 36 g/dl May 01, 2025 9:59:00 AM UTC (TECH: AAC) 86109-5 Erythrocyte distribution width [Ratio] H 14.2 % 11.5 % - 14.0 % May 01, 2025 9:59:00 AM UTC (TECH: AAC) 777-3 Platelets [#/volume] in Blood by Automated count N 199 K/ul 150 K/ul - 450 K/ul May 01, 2025 9:59:00 AM UTC (TECH: AAC) 28391-7 Platelet mean volume [Entitic volume] in Blood by Automated count H 11.0 fl 6 fl - 9.5 fl May 01, 2025 9:59:00 AM UTC (TECH: AAC) 71314-1 Neutrophils/100 leukocytes in Blood H 67.4 % 43 % - 65 % May 01, 2025 9:59:00 AM UTC (TECH: AAC) 736-9 Lymphocytes/100 leukocytes in Blood by Automated count L 18.6 % 20.5 % - 45.5 % May 01, 2025 9:59:00 AM UTC (TECH: AAC) 5905-5 Monocytes/100 leukocytes in Blood by Automated count N 11.1 % 5.5 % - 11.7 % May 01, 2025 9:59:00 AM UTC (TECH: AAC) 713-8 Eosinophils/100 leukocytes in Blood by Automated count N 2.1 % 0.9 % - 2.9 % May 01, 2025 9:59:00 AM UTC (TECH: AAC) 706-2 Basophils/100 leukocytes in Blood by Automated count N 0.5 % 0.2 % - 1.0 % May 01, 2025 9:59:00 AM UTC (TECH: AAC) 71593-5 Immature granulocytes/100 leukocytes in Blood by Automated count N 0.3 % 0.0 % - 0.8 % May 01, 2025 9:59:00 AM UTC (TECH: AAC) 69112-5 Nucleated cells [#/volume] in Blood N 0.0 % May 01, 2025 9:59:00 AM UTC (TECH: AAC) 43560-1 Neutrophils [#/volume] in Blood H 6.5 K/uL 2.2 K/uL - 4.8 K/uL May 01, 2025 9:59:00 AM UTC (TECH: AAC) 731-0 Lymphocytes [#/volume] in Blood by Automated count N 1.8 CELL/MCL 1.3 CELL/MCL - 2.9 CELL/MCL May 01, 2025 9:59:00 AM UTC (TECH: AAC) 742-7 Monocytes [#/volume] in Blood by Automated count H 1.1 CELL/MCL 0.3 CELL/MCL - 0.8 CELL/MCL May 01, 2025 9:59:00 AM UTC (TECH: AAC) 711-2 Eosinophils [#/volume] in Blood by Automated count N 0.2 CELL/MCL 0 CELL/MCL - 0.2 CELL/MCL May 01, 2025 9:59:00 AM UTC (TECH: AAC) 704-7 Basophils [#/volume] in Blood by Automated count N 0.1 CELL/MCL 0.0 CELL/MCL - 1.0 CELL/MCL May 01, 2025 9:59:00 AM UT (TECH: AAC) 35940-4 Immature granulocytes [#/volume] in Blood N 0.03 K/ul May 01, 2025 9:59:00 AM UT (TECH: AAC) 75283-6 Nucleated cells [#/volume] in Blood N 0.00 K/uL May 01, 2025 9:59:00 AM UT (TECH: AAC) 94210-6 Manual Differential panel - Blood N NO May 01, 2025 9:59:00 AM UT (TECH: AAC) ORDER 1801: COMP METABOLIC P TRI (LOINC: 30586-9) ORDER DATE: April 30, 2025 4:08:00 AM UT Specimen Source: PLASMA Specimen Type: Plasma specim en PERFORMING LAB: [address] [id number] Result Comment: Final Result Date: April 30, 2025 10:35:00 AM UT (TECH: ARR) LOINC TEST FLAG RESULT REFERENCE RANGE UPDA YADIRA BY 2951-2 Sodium [Moles/volume ] in Serum or Plasma N 142 mmol/L 136 mmol/L - 145 mmol/L April 30, 2025 10:35:00 AM UT (TECH: ARR) 2823-3 Potassium [Moles/volume] in Serum or Plasma N 3.9 mmol/L 3.6 mmol/L - 5.0 mmol/L April 30, 2025 10:35:00 AM UT (TECH: ARR) 2075-0 Chloride [Moles/volu me] in Serum or Plasma H 108 mmol/L 98 mmol/L - 107 mmol/L April 30, 2025 10:35:00 AM UT (TECH: ARR) 8-9 Carbon dioxide, tota l [Moles/volume] in Serum or Plasma N 25.4 mmol/L 21.0 mmol/L - 32.0 mmol/L April 30, 2025 10:35:00 AM UT (TECH: ARR) 73803-1 Anion gap in Blood N 12.5 O ct2024 10:35:00 AM UTC (TECH: ARR) 2345-7 Glucose [Mass/volume ] in Serum or Plasma H 129 mg/dl 70 mg/dl - 120 mg/dl April 30, 2025 10:35:00 AM UTC (TECH: ARR) 6299-2 Urea nitrogen [Mass/volume] in Blood H 36 mg/dL 7 mg/dL - 18 mg/dL April 30, 2025 10:35:00 AM UTC (TECH: ARR) 01089-7 Creatinine [Moles/volume] in Blood H 2.8 mg/dL 0.6 mg/dL - 1.3 mg/dL April 30, 2025 10:35:00 AM UTC (TECH: ARR) 90573-6 Glomerular filtratio n rate/1.73 sq M.predicted by Creatinine-based formula (MDRD) L 23 mlpermin 60 mlpermin April 30, 2025 10:35:00 AM UT (TECH: ARR) 18000-5 Osmolality of Serum or Plasma by calculated by sum of electrolytes H 305 mosm/kg 275 mosm/kg - 301 mosm/kg April 30, 2025 10:35:00 AM UTC (TECH: ARR) 2885-2 Protein [Mass/volume ] in Serum or Plasma L 6.0 g/dl 6.4 g/dl - 8.2 g/dl April 30, 2025 10:35:00 AM UTC (TECH: ARR) 1751-7 Albumin [Mass/volume ] in Serum or Plasma L 3.3 g/dl 3.4 g/dl - 5.0 g/dl April 30, 2025 10:35:00 AM UTC (TECH: ARR) 2336-6 Globulin [Mass/volum e] in Serum N 2.7 April 30, 2025 10:35:00 AM UTC (TECH: ARR) 1759-0 Albumin/Globulin [Ma ss Ratio] in Serum or Plasma N 1.2 0.7 - 2 April 30, 2025 10:35:00 AM UTC (TECH: ARR) 35463-1 Calcium [Mass/volume ] in Serum or Plasma L 8.2 mg/dl 8.5 mg/dl - 10.5 mg/dl April 30, 2025 10:35:00 AM UT (TECH: ARR) 1975-2 Bilirubin.total [Mass/volume] in Serum or Plasma N 0.50 mg/dL 0.10 mg/dL - 1.00 mg/dL April 30, 2025 10:35:00 AM UTC (TECH: ARR) 1920-8 Aspartate aminotransferase [Enzymatic activity/volume] in Serum or Plasma N 17 U/L 0 U/L - 37 U/L April 30, 2025 10:35:00 AM UTC (TECH: ARR) 1742-6 Alanine aminotransferase [Enzymatic activity/volume] in Serum or Plasma N 18 U/L 0 U/L - 65 U/L April 30, 2025 10:35:00 AM UTC (TECH: ARR) 6768-6 Alkaline phosphatase [Enzymatic activity/volume] in Serum or Plasma N 94 U/L 46 U/L - 116 U/L April 30, 2025 10:35:00 AM UT (TECH: ARR) ORDER 1802: COMP METABOLIC P TRI (LOINC: 06933-7) ORDER DATE: April 30, 2025 4:08:00 AM UT Specimen Source: PLASMA Specimen Type: Plasma specim en PERFORMING LAB: [address] [id number] Result Comment: Final Result Date: May 01, 2025 10:24:00 AM UT (TECH: ARR) LOINC TEST FLAG RESULT REFERENCE RANGE UPDA YADIRA BY 2951-2 Sodium [Moles/volume ] in Serum or Plasma N 141 mmol/L 136 mmol/L - 145 mmol/L May 01, 2025 10:24:00 AM UTC (TECH: ARR) 2823-3 Potassium [Moles/volume] in Serum or Plasma L 3.5 mmol/L 3.6 mmol/L - 5.0 mmol/L May 01, 2025 10:24:00 AM UTC (TECH: ARR) 2075-0 Chloride [Moles/volu me] in Serum or Plasma N 107 mmol/L 98 mmol/L - 107 mmol/L May 01, 2025 10:24:00 AM UTC (TECH: ARR) 8-9 Carbon dioxide, tota l [Moles/volume] in Serum or Plasma N 27.4 mmol/L 21.0 mmol/L - 32.0 mmol/L May 01, 2025 10:24:00 AM UTC (TECH: ARR) 65822-5 Anion gap in Blood N 10.1 O ct2024 10:24:00 AM UTC (TECH: ARR) 2345-7 Glucose [Mass/volume ] in Serum or Plasma N 113 mg/dl 70 mg/dl - 120 mg/dl May 01, 2025 10:24:00 AM UT (TECH: ARR) 6299-2 Urea nitrogen [Mass/volume] in Blood H 21 mg/dL 7 mg/dL - 18 mg/dL May 01, 2025 10:24:00 AM UT (TECH: ARR) 04125-9 Creatinine [Moles/volume] in Blood H 1.5 mg/dL 0.6 mg/dL - 1.3 mg/dL May 01, 2025 10:24:00 AM UT (TECH: ARR) 97029-8 Glomerular filtratio n rate/1.73 sq M.predicted by Creatinine-based formula (MDRD) L 48 mlpermin 60 mlpermin May 01, 2025 10:24:00 AM UT (TECH: ARR) 14006-9 Osmolality of Serum or Plasma by calculated by sum of electrolytes N 297 mosm/kg 275 mosm/kg - 301 mosm/kg May 01, 2025 10:24:00 AM UT (TECH: ARR) 2885-2 Protein [Mass/volume ] in Serum or Plasma L 5.9 g/dl 6.4 g/dl - 8.2 g/dl May 01, 2025 10:24:00 AM UT (TECH: ARR) 1751-7 Albumin [Mass/volume ] in Serum or Plasma L 3.1 g/dl 3.4 g/dl - 5.0 g/dl May 01, 2025 10:24:00 AM UT (TECH: ARR) 2336-6 Globulin [Mass/volum e] in Serum N 2.8 May 01, 2025 10:24:00 AM UT (TECH: ARR) 1759-0 Albumin/Globulin [Ma ss Ratio] in Serum or Plasma N 1.1 0.7 - 2 May 01, 2025 10:24:00 AM UT (TECH: ARR) 74153-6 Calcium [Mass/volume ] in Serum or Plasma L 8.2 mg/dl 8.5 mg/dl - 10.5 mg/dl May 01, 2025 10:24:00 AM UT (TECH: ARR) 1975-2 Bilirubin.total [Mass/volume] in Serum or Plasma N 0.70 mg/dL 0.10 mg/dL - 1.00 mg/dL May 01, 2025 10:24:00 AM UTC (TECH: ARR) 1920-8 Aspartate aminotransferase [Enzymatic activity/volume] in Serum or Plasma N 15 U/L 0 U/L - 37 U/L May 01, 2025 10:24:00 AM UTC (TECH: ARR) 1742-6 Alanine aminotransferase [Enzymatic activity/volume] in Serum or Plasma N 17 U/L 0 U/L - 65 U/L May 01, 2025 10:24:00 AM UTC (TECH: ARR) 6768-6 Alkaline phosphatase [Enzymatic activity/volume] in Serum or Plasma N 85 U/L 46 U/L - 116 U/L May 01, 2025 10:24:00 AM UTC (TECH: ARR) ORDER 1901: MAGNESIUM (LOINC : 26123-8) ORDER DATE: April 30, 2025 4:08:00 AM UTC Specimen Source: PLASMA Specimen Type: Plasma specim en PERFORMING LAB: [address] [id number] Result Comment: Final Result Date: April 30, 2025 10:35:00 AM UTC (TECH: ARR) LOINC TEST FLAG [place] [address]-2 Magnesium [Mass/volume] in Serum or Plasma N 2.2 MG/DL 1.8 MG/DL - 2.4 MG/DL April 30, 2025 10:35:00 AM UTC (TECH: ARR) ORDER 1902: MAGNESIUM (LOINC : 20403-8) ORDER DATE: April 30, 2025 4:08:00 AM UTC Specimen Source: PLASMA Specimen Type: Plasma specim en PERFORMING LAB: [address] [id number] Result Comment: Final Result Date: May 01, 2025 10:24:00 AM UTC (TECH: ARR) LOINC TEST FLAG [place] [address]-4 Magnesium [Mass/volume] in Serum or Plasma N 2.2 MG/DL 1.8 MG/DL - 2.4 MG/DL May 01, 2025 10:24:00 AM UTC (TECH: ARR) ORDER 2200: PROSTATE SPECIFI C AG PSA (LOINC: 2857-1) ORDER DATE: April 30, 2025 5:48:00 AM UT Specimen Source: PLASMA Specimen Type: Plasma specim en PERFORMING LAB: [address] [id number] Result Comment: Final Result Date: April 30, 2025 6:16:00 AM UT (TECH: AY) LOINC TEST FLAG RESULT REFERENCE RANGE UPDA YADIRA BY 2857-1 Prostate specific Ag [Mass/volume] in Serum or Plasma H 5.8 ng/mL 0 ng/mL - 4.0 ng/mL April 30, 2025 6:16:00 AM UT (TECH: AY) ORDER 2300: THYROID PANEL W/ TSH (LOINC: 99407-7) ORDER DATE: April 30, 2025 5:48:00 AM UT Specimen Source: PLASMA Specimen Type: Plasma specim en PERFORMING LAB: [address] [id number] Result Comment: Final Result Date: April 30, 2025 6:16:00 AM [facility] (TECH: AY) LOINC TEST FLAG RESULT REFERENCE RANGE UPDA YADIRA BY 3050-2 Triiodothyronine res in uptake (T3RU) in Serum or Plasma N 36.00 % 24.00 % - 39.00 % April 30, 2025 6:16:00 AM UT (TECH: AY) 3025-4 Thyroxine (T4) [Mass/volume] in Blood N 8.6 MCG/DL 4.5 MCG/DL - 12.1 MCG/DL April 30, 2025 6:16:00 AM [facility] (TECH: AY) 56456-2 Thyroxine (T4) free index in Serum or Plasma N 3.10 1.60 - 3.70 April 30, 2025 6:16:00 AM UT (TECH: AY) 3016-3 Thyrotropin [Units/volume] in Serum or Plasma H 3.78 mIU/L 0.36 mIU/L - 3.74 mIU/L April 30, 2025 6:16:00 AM UT (TECH: AY) ORDER 2400: LIPID PANEL (SISI NC: 33008-8) ORDER DATE: April 30, 2025 5:49:00 AM UT Specimen Source: PLASMA Specimen Type: Plasma specim en PERFORMING LAB: [address] [id number] Result Comment: Final Result Date: April 30, 2025 6:16:00 AM UT (TECH: AY) LOINC TEST FLAG RESULT REFERENCE RANGE UPDA YADIRA BY 2571-8 Triglyceride [Mass/volume] in Serum or Plasma N 124 mg/dl 30 mg/dl - 200 mg/dl April 30, 2025 6:16:00 AM UT (TECH: AY) 2093-3 Cholesterol [Mass/volume] in Serum or Plasma N 175 mg/dl 0 mg/dl - 200 mg/dl April 30, 2025 6:16:00 AM UT (TECH: AY) 38544-1 Cholesterol in HDL [Mass or Moles/volume] in Serum or Plasma N 45 mg/dL 40 mg/dL - 104 mg/dL April 30, 2025 6:16:00 AM UT (TECH: AY) 63148-6 Cholesterol in LDL [Mass/volume] in Serum or Plasma by calculation N 105 mg/dL 0 mg/dL - 130 mg/dL April 30, 2025 6:16:00 AM UT (TECH: AY) ORDER 2500: LACTIC ACID 3 HO UR (LOINC: 2524-7) ORDER DATE: April 30, 2025 7:28:00 AM UT Specimen Source: PLASMA Specimen Type: Plasma specim en PERFORMING LAB: [address] [id number] Result Comment: Final Result Date: April 30, 2025 10:26:00 AM UT (TECH: ARR) LOINC TEST FLAG RESULT REFERENCE RANGE UPDA YADIRA BY 2524-7 Lactate [Moles/volume] in Serum or Plasma N 1.5 mmol/L 0.4 mmol/L - 2.0 mmol/L April 30, 2025 10:26:00 AM UT (TECH: ARR) LABORATORY NARRATIVE RESULTS Information is not available RADIOLOGY RESULTS ORDER 400: CT ABD PEL W/O (L OINC: 23127-0) ORDER DATE: April 30, 2025 2:21:00 AM UT PERFORMING LAB: [address] [id number] Final Result Date: April 032024 3:13:[address] [address] Name: GUADALUPE KENYON Exam Date: 04/29/2025 : 1950 Age 74 years Gender: M Physician: Yadira Guerrero Facility: [facility] Facility HSV: Outpatient Exam: CT ABD PEL W/O EXAM: CT ABDOMEN PELVIS WITHOUT IV CONTRAST HISTORY: Male, 74 years old. Abdominal Pain TECHNIQUE: CT ABDOMEN PELVIS WITHOUT IV CONTRAST Axial CT images. Multiplanar reconstructions and 3-D maximum intensity projections were performed. All CT scans are performed using dose optimization techniques as appropriate to the exam being performed. These techniques include automatic exposure control and/or standardized protocols utilizing dose matching according to exam type and patient size. COMPARISON: None FINDINGS: LOWER CHEST: Linear atelectasis in the lower lobes. ABDOMEN/PELVIS: LIVER: No suspicious lesion. BILIARY SYSTEM: Cholelithiasis with mild gallbladder distention. SPLEEN: No acute abnormality. PANCREAS: No solid mass, inflammation or ductal dilatation. ADRENALS: No mass. URINARY TRACT: Cystic lesion left renal upper pole measuring 2.2 cm incompletely characterized. Bilateral mild hydroureteronephrosis. Significant right periureteral fat stranding and right greater than left perinephric stranding. Nondependent air in the bladder. The bladder is mildly distended. GASTROINTESTINAL / MESENTERY & PERITONEUM: Small inguinal hernias. Normal appendix. No bowel obstruction or inflammation. Mild diverticulosis. REPRODUCTIVE: Prostate enlargement. VASCULATURE: No acute abnormality or aortic aneurysm. LYMPH: No lymphadenopathy by size criteria. SOFT TISSUES: Normal. BONES: No acute fracture, traumatic malalignment or aggressive lesion. IMPRESSION: 1. Bilateral mild hydroureteronephrosis with significant right periureteral fat stranding and right greater than left perinephric stranding. Nondependent air in the bladder. Findings are concerning for ascending urinary tract infection. Rarely, this can be seen with ureteral myxedema. 2. Cholelithiasis with mild gallbladder distention. 3. Cystic lesion left renal upper pole measuring 2.2 cm incompletely characterized. Recommend nonemergent renal ultrasound. Electronically signed by: Nino Faulkner MD 04/29/2025 11:13 PM EDT Legally authenticated by SHERRI Jean 2025-04-29 23:13:50 Dictated By: Nino Faulkner Transcribed By: Transcribed On: 04/29/2025 11:13 PM Electronically signed by: Nino Faulkner 04/29/2025 Thank you for referring CASE[facility]AL[facility]PE to [facility]. Legally authenticated by SHERRI Jean 2025-04-29 23:13:50 PATHOLOGY NARRATIVE RESULTS Information is not available MICROBIOLOGY RESULTS No Micro Labs/Results Exist for Patient BLOOD ADMIN RESULTS Information is not available TREATMENT PLAN DISCHARGE MEDICATIONS Status RXNORM Medication Dose Route Frequency Dates Comments U pdated By Continued 923019 traMADol HCl Tablet 50 MG 1 TAB ORAL EVERY SIX HOURS NEEDED Prescribe d: May 01, 2025 2:14:05 PM UT [id number] on May 01, 2025 2:14:05 PM UTC Continued 968898 Ciprofloxacin HCl Oral Tablet 500 MG 1 TAB ORAL TWICE A DAY Prescribe d: May 01, 2025 2:14:05 PM UTC [id number] on May 01, 2025 2:14:05 PM UTC Continued 920100 tamsulosin (FLOMAX) 0.4 MG ORAL ONCE EVERY EVENING Prescribe d: May 01, 2025 2:14:05 PM UTC [id number] on May 01, 2025 2:14:05 PM UTC PATIENT OPEN ORDERS Code System Descriptio n Frequency Occurrenc es Priority Category Start Date Ordering Physician Updated By Patient open order informati on is not available. SCHEDULED PROCEDURES Code System Description Status Scheduled Date Upd ated By Patient scheduled procedure information is not available. HOSPITAL COURSE HOSPITAL COURSE Note Title Discharge Summary Date Of Service May 01, 2025 2:1 5:30 PM UTC Created By [id number] on April 042024 2:15:30 PM UTC Signed By [id number] on April 042024 5:14:10 PM UTC Muniz catheter was placed wi th decompression of his bladder.&Acirc; He was treated with broad spectrum abx with resolution of sepsis. Blood cx were negative and prelim urine cx is negative x [address] Coates was consulted and recommends discharge WITH muniz catheter with plans for voiding trials next week in clinic. MEDICATIONS HOME MEDICATIONS Status RXNORM MAC Medication Dose Route Frequency Dates Comments Reported By Updated By Active 147637 620856 88674 Cefdinir Capsule 300 MG 1.0 TAB ORAL BID Last Dose: [id number] on April 30, 2025 2:09:11 AM UT Active 8911069 449945 02453 Pyridium Tablet 200 MG 1.0 TAB ORAL Q8HPRN Last Dose: [id number] on April 30, 2025 2:09:12 AM UT Active 238984 933866 12995 traMADol HCl Tablet 50 MG 1.0 TAB ORAL Q6HPRN Last Dose: [id number] on May 01, 2025 2:09:43 PM UT DISCHARGE MEDICATIONS Status RXNORM [facility] Medication Dose Route Frequency Dates Dis pense Data Comments Physician Updated By Continu ed [id number] 5663 4037 708 traMADol HCl Tablet 50 MG 1.0 TAB ORAL EVERY SIX HOURS NEEDED Prescr ibed: [facility] r 2024 2:14:0 5 PM UT JIANG KATHRYN A PA [id number] on May 01, 2025 2:14:05 PM [facility] Continu ed [id number] 4018 3992 801 Ciprofloxac in HCl Oral Tablet 500 MG 1.0 TAB ORAL TWICE A DAY Prescr ibed: [facility] r 2024 2:14:0 5 PM UT JIANG KATHRYN A PA [id number] on May 01, 2025 2:14:05 PM [facility] Continu ed [id number] 5071 6016 088 tamsulosin (FLOMAX) 0.4 MG ORAL ONCE EVERY EVENING Prescr ibed: [facility] r 2024 2:14:0 5 PM [facility] JIANG KATHRYN A PA [id number] on May 01, 2025 2:14:05 PM [facility] INPATIENT MEDICATIONS Status RXNORM [facility] Medication Dose Route Frequency Rat e Quantity Dates Indication Dispense Data Comments Physician Updated By Discont inued [id number] 4552 3016 101 ketorolac (TORADOL) 15 MG/ML SOLN 15.0 MG INTRAV ENOUS ONE TIME ONLY (SCHEDULED DOSE) Start: [facility] r 2024 2:45:0 0 AM UT End: [facility] r 2024 2:45:0 0 AM [facility] BUD YADIRA [facility] ED on April 30, 2025 2:44:00 AM [facility] Discont inued [id number] 6838 9180 101 morphine sulfate (PF) CJ 4 MG/ML SOLN 4.0 MG INTRAV ENOUS ONE TIME ONLY (SCHEDULED DOSE) Start: [facility] r 2024 2:45:0 0 AM UTC End: [facility] 2024 2:45:0 0 AM [facility] April 30, 2025 2:44:00 AM UTC Discont inued [id number] 7183 5613 000 ondansetron (ZOFRAN) INJ 4 MG/2 ML SOLN 4.0 MG INTRAV ENOUS ONE TIME ONLY (SCHEDULED DOSE) Start: [facility] r 2024 2:45:0 0 AM UT End: [facility] r 2024 2:45:0 0 AM [facility] on April 30, 2025 2:44:00 AM UT Discont inued 1117870 4660 9301 305 lidocaine (XYLOCAINE) 2% UROJET GEL 10.0 ML ONE TIME ONLY (SCHEDULED DOSE) Start: [facility] 2024 3:37:0 0 AM UT End: [facility] 2024 3:37:0 0 AM [facility] on April 30, 2025 3:36:00 AM UT Discont inued 7945006 1765 9337 813 piperacilli n-tazobacta m(ZOSYN) 3.375 GM SOLR 3.375 GM INTRAV ENOUS ONE TIME ONLY (SCHEDULED DOSE) Start: [facility] 2024 3:37:0 0 AM UT End: [facility] 2024 3:37:0 0 AM [facility] ED on April 30, 2025 3:36:00 AM UTC Discont inued 9487 3001 164 NOZIN NASAL OFFICE SUPPORT CLERK POPSWAB SWAB 1.0 EA NASAL TWICE A DAY Start: [facility] r 2024 1:00:0 0 PM UTC End: [facility] r 2024 2:14:0 5 PM UT LATHA Gilman [id number] on May 02, 2025 4:25:00 AM UTC Discont inued 1355 0801 546 sodium chloride 0.9% FLUSH 10 ML SOLN 10.0 ML INTRAV ENOUS NEEDED Start: [facility] r 2024 4:03:0 0 AM UTC End: [facility] 2024 2:14:0 5 PM UTC LATHA GONSALEZ L [id number] on May 02, 2025 4:25:00 AM UTC Discont inued 334349 9510 8011 704 LACTATED RINGERS SOLN 1000. 0 ML INTRAV ENOUS CONT 125.0 ML/HR Start: [facility] 2024 4:03:0 0 AM UTC End: [facility] 2024 4:25:2 0 AM UTC LATHA GONSALEZ L [id number] on May 01, 2025 4:25:00 AM UTC Discont inued 207653 [phone] 0901 1900 617 ondansetron (ZOFRAN) 4 MG ODT TBDP 4.0 MG ORAL EVERY SIX HOURS NEEDED Start: [facility] 2024 4:03:0 0 AM UTC End: [facility] 2024 2:14:0 5 PM UTC LATHA GONSALEZ L [id number] on May 02, 2025 4:25:00 AM UTC Discont inued 6627 2052 941 acetaminoph en (TYLENOL) 500 MG TABS 1000. 0 MG ORAL EVERY EIGHT HOURS NEEDED [facility]: [facility] 4:03:0 0 AM UTC End: [facility] 20[facility] 2:14:0 5 PM UTC LATHA GONSALEZ L [id number] on May 02, 2025 4:25:00 AM UTC Discont inued [phone] 411 morphine sulfate (PF) 2 MG/ML SOLN 2.0 MG INTRAV ENOUS EVERY FOUR HOURS NEEDED Start: [facility] 2024 4:03:0 0 AM UTC End: [facility] 2024 2:14:0 5 PM UTC LATHA GONSALEZ L [id number] on May 02, 2025 4:25:00 AM UTC Discont inued [phone] 7043 198 MIRALAX PACKET 17 GM PACK 17.0 GM ORAL ONCE DAILY NEEDED Start: [facility] 2024 4:03:0 0 AM UTC End: [facility] 2024 2:14:0 5 PM UTC LATHA GONSALEZ L [id number] on May 02, 2025 4:25:00 AM UTC Discont inued 5109458 7129 9337 813 piperacilli n-tazobacta m(ZOSYN) 3.375 GM SOLR 3.375 GM INTRAV ENOUS EVERY SIX HOURS 200.0 ML/HR Start: [facility] r 2024 4:08:0 0 AM UTC End: [facility] r 2024 4:34:1 2 AM UTC LATHA Gilman [id number] on April 30, 2025 4:34:00 AM UTC Discont inued 9383256 0040 9710 167 sodium chloride 0.9% SOLN 100.0 ML INTRAV ENOUS EVERY SIX HOURS 200.0 ML/HR Start: [facility] r 2024 4:08:0 0 AM UTC End: [facility] r 2024 4:34:0 2 AM UTC LATHA Gilman [id number] on April 30, 2025 4:34:00 AM UTC Discont inued XXXX XXX0 053 CONSULT (PHARMACY TO DOSE) 1 EA MISC 1.0 EA PHARMA CY TO DOSE PHARMACY CONSULT NEEDED Start: [facility] r 2024 4:09:0 0 AM UTC End: [facility] 2024 4:34:3 0 AM UTC LATHA Gilman [id number] on April 30, 2025 4:34:00 AM UTC Discont inued 1019631 7212 3026 201 heparin sodium (PORCINE) 5000 UNIT/ML SOLN 5000. 0 UNT SUBCUT ANEOUS EVERY TWELVE HOURS Start: [facility] r 2024 4:11:0 0 AM UTC End: [facility] 2024 4:28:0 3 AM UTC LATHA Gilman [id number] on April 30, 2025 4:28:00 AM UTC Discont inued 9520397 2538 3026 201 heparin sodium (PORCINE) 5000 UNIT/ML SOLN 5000. 0 UNT SUBCUT ANEOUS EVERY TWELVE HOURS Start: [facility] 2024 1:00:0 0 PM UTC End: [facility] 2024 2:14:0 5 PM UTC LATHA Gilman [id number] on May 02, 2025 4:25:00 AM UTC Discont inued 5219630 4088 0011 930 piperacilli n-tazobacta m(ZOSYN) 2.25 GM SOLR 2.25 GM INTRAV ENOUS EVERY SIX HOURS 100.0 ML/HR Start: [facility] 2024 10:00: 00 AM UTC End: [facility] 2024 10:00: 00 AM UT LATHA Gilman [id number] on April 30, 2025 5:46:00 AM UTC Discont inued 2050211 0033 8004 941 sodium chloride 0.9% SOLN 50.0 ML INTRAV ENOUS EVERY SIX HOURS 100.0 ML/HR Start: [facility] 2024 10:00: 00 AM UTC End: [facility] 2024 5:46:1 1 AM UT LATHA Gilman [id number] on April 30, 2025 5:46:00 AM UTC Discont inued XXXX XXX0 053 CONSULT (PHARMACY TO DOSE) 1 EA MISC 1.0 EA PHARMA CY TO DOSE PHARMACY CONSULT NEEDED Start: [facility] 2024 4:34:0 0 AM UTC End: [facility] 2024 5:46:1 2 AM UT LATHA Gilman [id number] on April 30, 2025 5:46:00 AM UTC Discont inued 4756096 3580 9733 201 cefTRIAXone (ROCEPHIN) 1 GM SOLR 1.0 GM INTRAV ENOUS ONE TIME ONLY (SCHEDULED DOSE) 100.0 ML/HR Start: [facility] 2024 5:43:0 0 AM UTC End: [facility] 2024 6:42:0 7 AM UT LATHA Gilman [id number] on April 30, 2025 6:42:00 AM UTC Discont inued 3778367 0033 8055 311 sodium chloride 0.9% MB+ SOLN 50.0 ML INTRAV ENOUS ONE TIME ONLY (SCHEDULED DOSE) 100.0 ML/HR Start: [facility] 2024 5:43:0 0 AM UTC End: [facility] 2024 6:42:0 6 AM UT LATHA Gilman [id number] on April 30, 2025 6:42:00 AM UTC Discont inued [id number] 5833 9733 201 cefTRIAXone (ROCEPHIN) 1 GM SOLR 1.0 GM INTRAV ENOUS ONE TIME ONLY (SCHEDULED DOSE) Start: 2024 7:22:0 0 AM UTC End: [facility] 2024 7:22:0 0 AM UTC GUILHERME JEREZ [facility] ED on April 30, 2025 6:37:00 AM UT Discont inued 717502 1889 6016 088 tamsulosin (FLOMAX) 0.4 MG CAPS 0.4 MG ORAL ONCE EVERY EVENING Start: 2024 11:00: 00 PM UTC End: [facility] 2024 4:20:0 0 PM UTC ART FREDY S [id number] on May 02, 2025 4:25:00 AM UT SOCIAL HISTORY SOCIAL HISTORY - Smoking Status SNOMED-CT Social History Element Description Effective Dates Offered Cessation Comment Updated By [id number] Current Tobacco smoking status Unknown If Ever Smoked [id number] on April 30, 2025 2:09:18 AM UT [id number] Historical Tobacco smoking status Never Smoked [id number] on April 24, 2025 8:03:53 PM UT SOCIAL HISTORY - Gender Sex: Male SOCIAL HISTORY - Status : status i nformation is not available Intention in Next Year: intention information is not available SOCIAL HISTORY - Assessments Code System Description Status Date Value of Assessment Updated By Comment Assessment Information is no t available SOCIAL HISTORY - Sioux Affiliation Sioux information is not av ailable SOCIAL HISTORY - Legal Sex Legal Sex information is not available SOCIAL HISTORY - Sexual Behavior Sexual Orientation Gender Identity SNOMED-CT Description SNO MED -CT Description Activity Level No of Partners Partner Type UpdatedBy Information is not available SOCIAL HISTORY - Occupation Occupation information is no t available VITAL SIGNS PATIENT VITAL SIGNS This section displays the mo st recent value for each vital sign as of May 06, 2025 5:48:38 PM UT Loinc Code Vital Sign Activity Date Result Updated By 8302-2 Body height April 30, 2025 2:12:34 AM UT 185.42 cm (73.0 in) [id number] on April 30, 2025 2:12:34 [place] [address]-0 Body mass index (BMI ) [Ratio] April 30, 2025 2:12:34 AM UTC 32.577 kg/m2 3140-1 Body Surface Area Derived From Formula April 30, 2025 2:12:34 AM UTC 2.3534 m2 8310-5 Body temperature May 01 12:23:00 PM UTC 98.2 [degF] 41041-5 Body weight Measured April 30, 2025 2:12:34 AM UTC 112.0 kg (247.0 lb) [id number] on April 30, 2025 2:12:34 AM UTC 8462-4 Diastolic blood pressure May 01, 2025 12:23:00 PM UTC 78.0 mm[Hg] 8867-4 Heart rate May 01, 2025 1:35:00 PM UTC 91 /min 8478-0 Mean blood pressure May 01, 2025 12:23:00 PM UTC 98.0 mm[Hg] 04837-9 Oxygen saturation in Arterial blood by Pulse oximetry May 01, 2025 1:35:00 PM UTC 96.0 % 9279-1 Respiratory rate May 01 1:35:00 PM UTC 18 /min 8480-6 Systolic blood pressure May 01, 2025 12:23:00 PM UTC 133.0 mm[Hg] 95156-0 Vital capacity [Volume] Respiratory system by Spirometry May 01, 2025 1:35:00 PM UTC 2000.0 ml PEDIATRIC GROWTH CHART - VITAL SIGNS This section displays Head C ircumference Percentile, Weight for Length Percentile and BMI Percentile Loinc Code Pediatric Measure Age (Months) Result Updat ed By No Pediatric Growth Chart Pe rcentile Information Available. GOALS PATIENT GOALS Goal Assigned Date Updated By GUADALUPE KENYON REMAINS FREE F ROM COMPLICATIONS OF INFECTION DURING THE CARE PERIOD April 30, 2025 [id number] on April 30, 2025 7:47:00 AM UTC GUADALUPE Menchaca CASE REMAINS FREE F ROM COMPLICATIONS FOR MED-SURG ADMIT DURING THE CARE PERIOD April 30, 2025 [id number] on April 30, 2025 7:47:00 AM UTC GUADALUPE KENYON REMAINS FREE O F COMPLICATIONS RELATED TO IV THERAPY DURING THE CARE PERIOD April 30, 2025 [id number] on April 30, 2025 7:47:00 AM UTC HEALTH CONCERNS Problems Concern Status Health Concern problem infor mation not available. Smoking Status Status Years Used Consumed packs p er day Health Concern smoking histo ry information not available. Family History Concern Status Health Concern family histor y information not available. ENCOUNTERS ENCOUNTER INFORMATION Reason for Visit SEVERE SEPSIS W/OUT SEPTIC SHOCK, UTI/SITE NOT SPECIFIED, PYELONEP Admission April 30, 2025 4:03:00 AM UTC [address] [id number] Discharge May 01, 2025 4:20:00 PM UTC DISCHARGED TO HOME OR SELF CARE ENCOUNTER DIAGNOSES Note Title Discharge Summary Date Of Service May 01, 2025 2:1 5:30 PM UTC Created By [id number] on April 042024 2:15:30 PM UTC Signed By [id number] on April 042024 5:14:10 PM UTC Code System Diagnosis Onset Date [id number] SNOMED-CT Pyelonephritis [id number] SNOMED-CT Postprocedural retentio n of urine 93196540 SNOMED-CT Sepsis ABSTRACT DIAGNOSES Code System Diagnosis Updated By Abatement Date A41.9 ICD10 SEPSIS, UNSPECIFIED ORGANISM [id number] on May 06, 2025 5:47:56 PM UTC A41.9 ICD10 SEPSIS, UNSPECIFIED ORGANISM [id number] on May 06, 2025 5:47:56 PM UTC N10 ICD10 ACUTE PYELONEPHRITIS [id number] on May 06, 2025 5:47:56 PM UTC N17.9 ICD10 ACUTE KIDNEY DIMITRIS LURE, UNSPECIFIED [id number] on May 06, 2025 5:47:56 PM UTC N13.6 ICD10 PYONEPHROSIS [id number] on 2024 5:47:56 PM UTC R65.20 ICD10 SEVERE SEPSIS WI THOUT SEPTIC SHOCK [id number] on May 06, 2025 5:47:56 PM UTC M79.10 ICD10 MYALGIA, UNSPECIFIED SITE FG [id number] on May 06, 2025 5:47:56 PM UTC R33.9 ICD10 RETENTION OF URINE, UNSPECIF IED [id number] on May 06, 2025 5:47:56 PM UTC N21.0 ICD10 CALCULUS IN BLADDER [id number] on May 06, 2025 5:47:56 PM UTC Z79.899 ICD10 OTHER PRISON (CURRENT) DRUG THERAPY [id number] on May 06, 2025 5:47:56 PM UT CARE TEAM Care Bulk Plant Agent Role FREDY COATES Consulting DENISSE HARRIS Referring DENISSE HARRIS Primary Care MERI VANEGAS Admitting MERI VANEGAS Primary Attending HOSPITAL DISCHARGE INSTRUCTION DISCHARGE INSTRUCTION Encounter [id number] Admit Date April 30, 2025 4:0 3:00 AM UTC Discharge Date May 01, 2025 4:2 0:00 PM [facility] PATIENT EDUCATION SUMMARY Patient/Visit Information: Patient Name: GUADALUPE Menchaca CASE Diag: Attending Caregiver: GUILHERME LOWEEAGLE Discharge Instruction Sheets Provided: BEFAST-Stroke Warning Signs Discharge Information Fall Prevention in Hospitals and in the Home [facility] - Medication Management Indwelling Urinary Catheter Bag Care, Adult KYNECT- HELP Medication Side Effects Sepsis, Diagnosis, Adult Suicide - Managing your Feelings Urosepsis, Adult Patient Instructions: Followup Appointments/Instructions: HISTORY AND PHYSICAL NOTE CONSULTATION NOTE CONSULTATION NOTE Note Title Consult History and Physical Date Of Service April 30, 2025 1:3 9:01 PM UT Created By [id number] on April 032024 1:39:01 PM UTC Signed By [id number] on April 032024 1:40:57 PM UTC Chief Complaint Urinary retention, urosepsis History of Present Illness patient is a 74-year-old male known to me, he underwent cystolitholapaxy for very large bladder stone burden on 04/28/2025. Patient returned to the ER last night with fevers and urinary retention. Muniz catheter was placed and patient states his symptoms are markedly improved with the initiation of broad-spectrum antibiotics. CT shows mild bilateral hydronephrosis with stranding around the kidney. Suspect this is secondary to significant bladder distention. Reason for Consultation Urinary retention, urosepsis Past Medical History Urinary bladder stone Past Surgical History Hand repair, left Social History tobacco use Unknown If Ever Smoked, 0 yrs alcohol use No Known Use drug use No Known Use marital status sexual behavior Identifies as Male general comment lives with , independently walks and performs ADLs Family History Parents Father Suicide @ 58 Mother Abdominal aortic aneurysm Siblings Brother Leukemia @ 40 Allergies No Known Allergies Active Medications NOZIN NASAL OFFICE SUPPORT CLERK POPSWAB 1 EA NASAL BID APPLY TO EACH NOSTRIL heparin sodium (PORCINE) 5000 UNIT/ML 5000 UNT SUBCUT Q12H sodium chloride 0.9% FLUSH 10 ML IV PUSH PRN for FLUSH IV LINE ondansetron (ZOFRAN) 4 MG ODT 4 MG PO Q6HPRN for NAUSEA VOMITING morphine sulfate (PF) 2 MG/ML 2 MG IV PUSH Q4HPRN for SEVERE PAIN 7-10 PAIN SCALE MIRALAX PACKET 17 GM PO DAILYPRN for CONSTIPATION LACTATED RINGERS 1000 ML IV Continuous 125 ML/HR acetaminophen (TYLENOL) 1000 MG PO Q8HPRN for MILD PAIN 1-3 PAIN SCALE, TEMP >100.4 NOT TO EXCEED 4 GRAMS OF ACETAMINOPHEN IN 24 HOUR PERIOD Vital Signs 0832 T 98.4 HR 88 RR 16 BP 140 / 76 O2Sat 92 0307 T 98.6 HR 81 RR 18 BP 154 / 75 O2Sat 93 Intake and Output previous current encounter day day cumulative Intake - 250 250 Output 454 266 7337 Balance (-400) (-375) (-775) Physical Exam General Normal appearance, Awake, Alert, Oriented to person, Oriented to place, Oriented to time Lab Results 0554 Special Chemistry LACTATE3 1.5 0505 Chemistry NA 142 K 3.9 CHLORIDE 108 (H) CO2 25.4 AGAP 12.5 GLUC 129 (H) BUN 36 (H) CREAT 2.8 (H) GFR 23 (L) OSMO TAHMINA 305 (H) TP 6.0 (L) ALB 3.3 (L) GLOB 2.7 ALB/GLOB 1.2 CALCIUM 8.2 (L) BILI TOT 0.50 AST 17 ALT 18 ALP 94 MG 2.2 5 Hematology WBC 12.6 (H) RBCS 4.5 (L) HGB 12.9 (L) HCT 40.6 (L) MCV 89.6 MCH 28.5 MCHC 31.8 (L) RDW 14.5 (H) PLT S 222 MPV 11.3 (H) NEUT% 77.7 (H) LYMPH% 11.6 (L) MONO% 9.8 EOS% 0.2 (L) BASO% 0.2 IG% 0.5 NRBC% 0.0 NEUT# 9.8 (H) LYMPH# 1.5 MONO# 1.2 (H) EOS# 0.0 BASO# 0.0 IG# 0.06 NRBC# 0.00 MANDIFF? No 0235 Special Chemistry LACTATE3 2.4 (H) 2332 Coagulation PT 11.2 PTT 23.0 (L) INR 1.1 (H) [address] Scanning [id number] 2230 Special Chemistry LACTATE 2.2 (H) 2230 Chemistry NA 139 K 4.2 CHLORIDE 104 CO2 25.2 AGAP 14.0 GLUC 168 (H) BUN 43 (H) CREAT 3.9 (H) GFR 15 (L) OSMO TAHMINA 304 (H) TP 7.2 ALB 4.1 GLOB 3.1 ALB/GLOB 1.3 CALCIUM 8.9 BILI TOT 0.60 AST 21 ALT 24 ALP 119 (H) TRIG 124 CHOL 175 HDL 45 LDL CALC 105 T3U 36.00 T4 8.6 FTI 3.10 TSH 3.78 (H) PSA 5.8 (H) PCT 0.05 2230 Hematology WBC 17.7 (H) RBCS 5.1 HGB 14.6 HCT 44.7 MCV 88.3 MCH 28.9 MCHC 32.7 RDW 14.4 (H) PLT S 251 MPV 10.2 (H) NEUT% 86.0 (H) LYMPH% 5.2 (L) MONO% 8.0 EOS% 0.1 (L) BASO% 0.1 (L) IG% 0.6 NRBC% 0.0 NEUT# 15.3 (H) LYMPH# 0.9 (L) MONO# 1.4 (H) EOS# 0.0 BASO# 0.0 IG# 0.10 NRBC# 0.00 MANDIFF? No Procedures and Surgeries None Assessment/Plan acute urinary retention, urosepsis recommend leaving current Muniz catheter in for a minimum of 3-5 days, continue tamsulosin. Agree with broad-spectrum antibiotics pending urine culture results. Patient will likely need definitive bladder outlet obstruction surgery in the near future once he recovers from current infection. My office will contact the patient to schedule voiding trial next week. Electronically signed by KELY LACY on 0940 DISCHARGE SUMMARY NOTE DISCHARGE SUMMARY NOTE Note Title Discharge Summary Date Of Service May 01, 2025 2:1 5:30 PM UTC Created By [id number] on April 042024 2:15:30 PM UTC Signed By [id number] on April 042024 5:14:10 PM UTC Admit Date Admit Date: Discharge Date Discharge Date: May 01, 2025 Patient Care Team Admitting Provider: GUILHERME LACY Attending Provider: GUILHERME LACY Consulting Provider: KELY LACY Discharge Diagnosis Pyelonephritis Postprocedural retention of urine resolved Sepsis Resolved History of Present Illness Guadalupe Kenyon is a 74-year-old male who states he is healthy and does not take any home meds but ultimately admits that he has not been to a primary care provider in over 15 years. Patient presents to the ER with urinary retention and flank pain status post urology procedure Monday. Patient states on Monday Dr. Coates, urologist performed cystolitholapaxy of stones within his bladder. Procedure was done in the OR here at our facility with general anesthetic. Monday morning he stated he felt okay but then Monday afternoon he started feeling worse than he did prior to the procedure. States he had a lot of phlegm production resulting in coughing and vomiting, he would flank pain. He had some urinary retention and decreased oral intake And thus he comes back to the ER. In the ER patient was found to have sepsis presentation with tachycardia, hypertension, tachypnea. he was given IV fluid resuscitation, Toradol and Zofran for symptoms. serology testing was positive for elevated lactic acid and leukocytosis. He did have an elevated creatinine. CT of the abdomen and pelvis shows Bilateral mild hydronephrosis with significant right periureteral fat stranding and right greater than left perinephric stranding. Patient was given Zosyn in the ER. despite patient reporting retention of urine, bladder scan showed less than 300 mL. Patient was admitted for sepsis, and pyelonephritis. Hospital Course Muniz catheter was placed with decompression of his bladder. He was treated with broad spectrum abx with resolution of sepsis. Blood cx were negative and prelim urine cx is negative x [address] Coates was consulted and recommends discharge WITH muniz catheter with plans for voiding trials next week in clinic. Vital Signs 0823 T 98.2 HR 90 RR 16 BP 133 / 78 O2Sat 96 0353 T 98.1 HR 78 RR 16 BP 126 / 61 O2Sat 90 Intake and Output previous current encounter day day cumulative Intake 1110 - 1110 Output 3325 - 3725 Balance (-2215) - (-2615) Physical Exam Narrative General: alert and oriented, no acute distress Neuro: awake, alert, no apparent focal deficits Eye: normal conjunctiva HENT: normocephalic, atraumatic Neck: no JVD Lungs: symmetrical chest rise, non-labored breathing Heart: normal rate, normal rhythm Abdomen: nondistended MSK: normal range of motion and strength Skin: warm, dry, no rashes or lesions Psych: cooperative, normal mood and affect Lab Results 0432 Chemistry NA 141 K 3.5 (L) CHLORIDE 107 CO2 27.4 AGAP 10.1 GLUC 113 BUN 21 (H) CREAT 1.5 (H) GFR 48 (L) OSMO TAHMINA 297 TP 5.9 (L) ALB 3.1 (L) GLOB 2.8 ALB/GLOB 1.1 CALCIUM 8.2 (L) BILI TOT 0.70 AST 15 ALT 17 ALP 85 MG 2.2 0432 Hematology WBC 9.7 RBCS 4.4 (L) HGB 12.5 (L) HCT 39.5 (L) MCV 89.8 MCH 28.4 MCHC 31.6 (L) RDW 14.2 (H) PLT S 199 MPV 11.0 (H) NEUT% 67.4 (H) LYMPH% 18.6 (L) MONO% 11.1 EOS% 2.1 BASO% 0.5 IG% 0.3 NRBC% 0.0 NEUT# 6.5 (H) LYMPH# 1.8 MONO# 1.1 (H) EOS# 0.2 BASO# 0.1 IG# 0.03 NRBC# 0.00 MANDIFF? No Imaging Results CT A&P WO: 1. Bilateral mild hydroureteronephrosis with significant right periureteral fat stranding and right greater than left perinephric stranding. Nondependent air in the bladder. Findings are concerning for ascending urinary tract infection. Rarely, this can be seen with ureteral myxedema. 2. Cholelithiasis with mild gallbladder distention. 3. Cystic lesion left renal upper pole measuring 2.2 cm incompletely characterized. Recommend nonemergent renal ultrasound. Procedures and Surgeries None Condition at Discharge stable Discharge Medications Ciprofloxacin HCl Oral Tablet 500 MG1 TAB BY MOUTH TWICE A DAY (ePrescribed by DEIDRE MESA on 101) tamsulosin (FLOMAX)0.4 MG BY MOUTH ONCE EVERY EVENING (ePrescribed by DEIDRE MESA on 1014) traMADol HCl Tablet 50 MGContinue taking same as home Follow-Up Follow up in [address] Coates for voiding trials Time spent with Patient Total [id number] time spent with patient/ family discussing diagnosis, testing, treatment plan and exam: 20 minuets Electronically signed by DEIDRE MESA on 1020 Patient care reviewed and discussed with BONITA Melendez Electronically signed by GUILHERME LACY on 1314 CARE TEAM CARE hotel or motel receptionist Role on Team Location Telecom Status Start Date End Jasen e Updated By KELY LACY Consulting normal April 30, 2025 2:08:45 PM [facility] May 01, 2025 4:20:00 PM [facility] [id number] on April 30, 2025 2:08:45 PM [facility] GUILHERME LACY Attending normal April 30, 2025 4:12:29 AM [facility] May 01, 2025 4:20:00 PM [facility] [id number] on April 30, 2025 2:08:45 PM [facility] GUILHERME LACY Admitting normal April 30, 2025 4:12:29 AM [facility] May 01, 2025 4:20:00 PM [facility] [id number] on April 30, 2025 2:08:45 PM UTC STEVEN Graham Referring normal April 30, 2025 2:32:35 AM UTC May 01, 2025 4:20:00 PM UTC [id number] on April 30, 2025 2:08:45 PM UTC BUD LACY Attending normal April 30, 2025 2:32:35 AM UTC April 30, 2025 4:11:59 AM UTC [id number] on April 30, 2025 2:08:45 PM UTC BUD LACY Admitting normal April 30, 2025 2:32:35 AM UTC April 30, 2025 4:11:59 AM UTC [id number] on April 30, 2025 2:08:45 PM UTC STEVEN Graham PCP normal April 30, 2025 2:00:33 AM UTC April 30, 2025 4:11:59 AM UTC [id number] on April 30, 2025 2:08:45 PM UTC
--- OUTSIDE RECORDS SUMMARY | 2025-05-07 02:00 | XMS_ITS | Data Portability ---
Author Organization [place] [facility] KAMILLE Vyas ADMIN Address [address] [place] [id number] Assessment Encounter Date Assessment Date Assessment LastModified by Organization Details LastModified Time 02/13/2025 02/13/2025 ASSESSMENT: Rustam Mcgill is a 74-year-old male with symptoms consistent with prostatitis, including urinary frequency, burning, urgency, and a boggy, tender prostate on examination. PLAN: 1. Initiate a 30-day course of doxycycline to treat prostatitis. 2. Prescribe a 14-day course of a strong anti-inflammatory medication to reduce inflammation and expedite recovery. 3. Advise the patient to avoid Aleve or other NSAIDs during the course of treatment. 4. Educate the patient on the potential side effects of doxycycline, including increased sensitivity to sunlight, and recommend the use of sunscreen and protective clothing when outdoors. 5. Schedule a follow-up appointment in six weeks to assess symptom resolution and overall progress. 6. Plan to check PSA levels at the follow-up visit, as inflammation may affect current readings. 7. 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 Please note this report was created using voice recognition/text compilation software documentation services during the encounter with the patient. [email or web address] Not available 02/13/2025 10:29:50 04/08/2025 04/08/2025 ASSESSMENT: Rustam Mcgill is a 74-year-old male with recurrent urinary symptoms suggestive of prostatitis and possible inflammatory bowel disease. PLAN: 1. Prescribe Bactrim, to be taken twice daily for two weeks, to address suspected prostatitis. 2. Initiate tamsulosin (Flomax), one capsule at bedtime, to improve urinary stream and alleviate symptoms. 3. Schedule cystoscopy in approximately two weeks to evaluate the bladder lining for abnormalities, inflammation, or potential fistula formation. 4. Educate the patient on potential side effects of Bactrim, including stomach irritation, and advise taking Flomax at bedtime to minimize the risk of blood pressure changes. 5. Discuss the possibility of fistula formation between the bowel and bladder, including symptoms such as air in the urine stream or fecal material in the urine. 6. Provide instructions to return to the clinic in two weeks for follow-up and cystoscopy. Please note this report was created using voice recognition/text compilation software documentation services during the encounter with the patient. [email or web address] Not available 04/08/2025 14:04:44 04/22/2025 04/22/2025 ASSESSMENT: Rustam Mcgill is a 74-year-old male with bladder stones contributing to urinary irritation and incomplete bladder emptying. PLAN: 1. Obtain a CT scan to evaluate the size and volume of the bladder stones for surgical planning. 2. Discuss potential surgical options, including cystolitholapaxy with laser stone removal and transurethral resection of the prostate (TURP), to address the underlying cause and prevent recurrence. 3. Discontinue Bactrim as the root cause of symptoms has been identified. 4. Continue Flomax to assist with urinary flow until the stones are removed. 5. Contact [facility] to request a reread of the prior CT scan and obtain the imaging disc for review. 6. Schedule the patient for stone removal and provide education on the risks and benefits of the procedure, including bleeding, infection, injury to structures, and risks of anesthesia. 7. Follow up with the patient via phone to discuss CT scan results and finalize the surgical plan. Please note this report was created using voice recognition/text compilation software documentation services during the encounter with the patient. [email or web address] Not available 04/22/2025 11:28:59 Plan of Treatment Reminders Order Date Submit Date Provider Last Modified By Organization Details Last Modified Time Details Appointments OV EST 15 2024 03:15P Barbi EDGE MD Not available Not available Not available Lab urinalysi s, dipstick [address] [facility], [address], [place], [address], 04/23/2025 09:40:16 urinalysi s, dipstick [address] [facility], [address], [place], [address], 04/08/2025 14:04:54 urinalysi s, dipstick [address] [facility], [address], [place], [address], 02/13/2025 10:30:01 PSA, total, serum or plasma 2024 025 [facility] [address] [place] [address], [address], 03/27/2025 17:48:28 Referral None recorded. Procedures bladder scan (PROC) [address] [facility], [address], [place], [address], 04/08/2025 14:04:54 bladder scan (PROC) [address] [facility], [address], [place], [address], 02/13/2025 10:30:01 Surgeries cystolith olapaxy (SURG) 2024 025 Not available 04/28/2025 13:36:43 Imaging None recorded. Medication Orders Bactrim DS 800 mg-160 mg tablet 2024 025 [id number], [address] [place], [address], 04/08/2025 14:04:56 tamsulosi n 0.4 mg capsule 2024 025 [id number], [address] [place], [address], 04/08/2025 14:04:56 doxycycli ne hyclate 100 mg capsule 2024 025 [id number], [address] [place], [address], 04/08/2025 13:46:56 meloxicam 15 mg tablet 2024 025 [id number], [address] [place], [address], 03/06/2025 05:02:21 Patient TargetsNo targets recorded. Patient InstructionsNo instructions recorded. Reason for Referral None Reported. Results Created Date Observation Date Name Description Value Unit Range Abnormal Flag Note LastModifiedBy Organization Detail LastModifiedTime 02/14/2002/13/2025 bladd er scan (PROC ) Calculated Residual Urine: 0 Not Available [facility] [address] [facility] [address], [place], [address], 02/13/2025 10:23:48 02/14/20 25 02/13/2025 urina lysis , dipst ick Leukocytes (reference range) small Not Available [facility] [address], [place], [address], 02/13/2025 10:23:49 02/14/20 25 02/13/2025 urina lysis , dipst ick Nitrite (reference range:) negati ve Not Available [facility], [place], [address], 02/13/2025 10:23:49 02/14/20 25 02/13/2025 urina lysis , dipst ick Urobilinogen (reference range) 0.2 Not Available [facility] [address] [facility] [address], [place], [address], 02/13/2025 10:23:49 02/14/20 25 02/13/2025 urina lysis , dipst ick Protein (reference range) trace Not Available [place] [address] [facility] [address], [place], [address], 02/13/2025 10:23:49 02/14/20 25 02/13/2025 urina lysis , dipst ick pH (reference range 5-8.5) 5.5 Not Available [place] [address] [facility] [address], [place], [address], 02/13/2025 10:23:49 02/14/20 25 02/13/2025 urina lysis , dipst ick Blood (reference range:) large Not Available [place] [address] [facility] [address], [place], [address], 02/13/2025 10:23:49 02/14/20 25 02/13/2025 urina lysis , dipst ick Specific Warren (reference range) 1.025 Not Available [place] [address] [facility] [address], [place], [address], 02/13/2025 10:23:49 02/14/20 25 02/13/2025 urina lysis , dipst ick Ketone (reference range) negati ve Not Available [place] [address] [facility] [address], [place], [address], 02/13/2025 10:23:49 02/14/20 25 02/13/2025 urina lysis , dipst ick Bilirubin (reference range) negati ve Not Available [place] [address] [facility] [address], [place], [address], 02/13/2025 10:23:49 02/14/20 25 02/13/2025 urina lysis , dipst ick Glucose (reference range) negati ve Not Available [place] [address] [facility] [address], [place], [address], 02/13/2025 10:23:49 02/14/2002/13/2025 urina lysis , dipst ick Color (reference range: yellow-brown ) Yellow Not Available [place] [address] [facility] [address], [place], [address], 02/13/2025 10:23:49 04/08/2004/08/2025 urina lysis , dipst ick Leukocytes (reference range) small Not Available [place] [address] [facility] [address], [place], [address], 04/08/2025 13:40:21 04/08/20 25 04/08/2025 urina lysis , dipst ick Nitrite (reference range:) negati ve Not Available [place] [address] [facility] [address], [place], [address], 04/08/2025 13:40:21 04/08/20 25 04/08/2025 urina lysis , dipst ick Urobilinogen (reference range) 0.2 Not Available [place] [address] [facility] [address], [place], [address], 04/08/2025 13:40:21 04/08/20 25 04/08/2025 urina lysis , dipst ick Protein (reference range) 100 Not Available [place] [address] [facility] [address], [place], [address], 04/08/2025 13:40:21 04/08/20 25 04/08/2025 urina lysis , dipst ick pH (reference range 5-8.5) 5.0 Not Available [place] [address] [facility] [address], [place], [address], 04/08/2025 13:40:21 04/08/20 25 04/08/2025 urina lysis , dipst ick Blood (reference range:) modera te Not Available [place] [address] [facility] [address], [place], [address], 04/08/2025 13:40:21 04/08/20 25 04/08/2025 urina lysis , dipst ick Specific Warren (reference range) 1.025 Not Available [place] [address] [facility] [address], [place], [address], 04/08/2025 13:40:21 04/08/2004/08/2025 urina lysis , dipst ick Ketone (reference range) negati ve Not Available [place] [address] [facility] [address], [place], [address], 04/08/2025 13:40:21 04/08/20 25 04/08/2025 urina lysis , dipst ick Bilirubin (reference range) negati ve Not Available [place] [address] [facility] [address], [place], [address], 04/08/2025 13:40:21 04/08/20 25 04/08/2025 urina lysis , dipst ick Glucose (reference range) negati ve Not Available [place] [address] [facility] [address], [place], [address], 04/08/2025 13:40:21 04/08/2004/08/2025 urina lysis , dipst ick Color (reference range: yellow-brown ) Yellow Not Available [place] [address] [facility] [address], [place], [address], 04/08/2025 13:40:21 04/08/20 25 04/08/2025 bladd er scan (PROC ) Calculated Residual Urine: 0mL Not Available [facility] [place] [address] [address] [facility] [address], [place], [address], 04/08/2025 13:40:42 04/22/2004/22/2025 urina lysis , dipst ick Leukocytes (reference range) negati ve Not Available [place] [address] [facility] [address], [place], [address], 04/22/2025 11:21:29 04/22/2004/22/2025 urina lysis , dipst ick Nitrite (reference range:) negati ve Not Available [place] [address] [facility] [address], [place], [address], 04/22/2025 11:21:29 04/22/20 25 04/22/2025 urina lysis , dipst ick Urobilinogen (reference range) 0.2 Not Available [facility] [place] [address] [facility] [address], [place], [address], 04/22/2025 11:21:29 04/22/20 25 04/22/2025 urina lysis , dipst ick Protein (reference range) 30 Not Available [facility] [place] [address] [facility] [address], [place], [address], 04/22/2025 11:21:29 04/22/20 25 04/22/2025 urina lysis , dipst ick pH (reference range 5-8.5) 5.5 Not Available [place] [address] [facility] [address], [place], [address], 04/22/2025 11:21:29 04/22/20 25 04/22/2025 urina lysis , dipst ick Blood (reference range:) small Not Available [facility] [place] [address] [facility] [address], [place], [address], 04/22/2025 11:21:29 04/22/2004/22/2025 urina lysis , dipst ick Specific Warren (reference range) 1.030 Not Available [place] [address] [facility] [address], [place], [address], 04/22/2025 11:21:29 04/22/2004/22/2025 urina lysis , dipst ick Ketone (reference range) negati ve Not Available [place] [address] [facility] [address], [place], [address], 04/22/2025 11:21:29 04/22/2004/22/2025 urina lysis , dipst ick Bilirubin (reference range) negati ve Not Available [place] [address] [facility] [address], [place], [address], 04/22/2025 11:21:29 04/22/2004/22/2025 urina lysis , dipst ick Glucose (reference range) negati ve Not Available [place] [address] [facility] [address], [place], [address], 04/22/2025 11:21:29 04/22/2004/22/2025 urina lysis , dipst ick Color (reference range: yellow-brown ) Dark Yellow Not Available [place] [address] [facility] [address], [place], [address], 04/22/2025 11:21:29 02/13/20 25 12/27/2024 CT, abdom en + pelvi s, w/o contr ast No observ ation record ed. [email or web address] [facility] (Med Record) [facility], [place], [address], 02/18/2025 16:59:39 04/22/20 25 12/27/2024 CT, abdom en + pelvi s, w/wo contr ast No observ ation record ed. [email or web address] [address], [place], [address], 04/23/2025 14:53:11 04/24/20 25 12/27/2024 CT, abdom en + pelvi s, w/wo contr ast No observ ation record ed. [email or web address] [address], [place], [address], 05/06/2025 13:57:30 Result Notes None recorded. Problems Name Problem SNOMED Code Status Onset Date Resolution Date Notes Provider Name and Address Organization Details Recorded Time Acute prostatitis 81036179 Active [address], [place], [address] , [place] - [facility] [place] 10:29:02 Increased frequency of urination 612244854 Active 2024 FREDY EDGE MD [address], [place], [address] , [place] - [facility] [place] 09:40:04 Dysuria 68455370 Active [address], [place], [address] , [place] [facility] [place] 10:29:10 Microscopic hematuria 105397387 Active [address], [place], [address] , [place] [facility] [place] 14:04:11 Urgent desire to urinate 14143740 Active [address], [place], [address] , [place] - [facility] [place] 14:04:15 Problem Notes Documentation Provider Name and Address Organization Details Recorded Time Urologist Consult Note : Consult History and Physical [facility] Name CaseRustam Date of Service 0939 [id number] (M) Attending GUILHERME LACY Admitted [id number] Discharged Primary STEVEN Graham - Chief Complaint Urinary retention, urosepsis History of Present Illness patient is a 74-year-old male known to me, he underwent cystolitholapaxy for very large bladder stone burden on 04/28/2025. Patient returned to the ER last night with fevers and urinary retention. 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 EA NASAL BID APPLY TO EACH NOSTRIL heparin sodium (PORCINE) 5000 UNIT/ML 5000 UNT SUBCUT Q12H sodium chloride 0.9% FLUSH 10 ML IV PUSH PRN for FLUSH IV LINE ondansetron (ZOFRAN) 4 MG ODT 4 MG PO Q6HPRN for NAUSEA VOMITING 1 of 3 Consult History and Physical [facility] Name Case, Rustam Menchaca Date of Service 0939 [id number] (M) Attending GUILHERME LACY Admitted [id number] Discharged Primary STEVEN Graham - morphine sulfate (PF) 2 MG/ML 2 MG IV PUSH Q4HPRN for SEVERE PAIN 7-10 PAIN SCALE MIRALAX PACKET 17 GM PO DAILYPRN for CONSTIPATION LACTATED RINGERS 1000 ML IV Continuous 125 ML/HR acetaminophen (TYLENOL) 1000 MG PO Q8HPRN for MILD PAIN 1-3 PAIN SCALE, TEMP > 100.4 NOT TO EXCEED 4 GRAMS OF ACETAMINOPHEN IN 24 HOUR PERIOD Vital Signs 0832 T 98.4 HR 88 RR 16 BP 140 / 76 O2Sat 92 0307 T 98.6 HR 81 RR 18 BP 154 / 75 O2Sat 93 Intake and Output previous current encounter day day cumulative Intake - 250 250 Output 477 189 5453 Balance (-400) (-375) (-775) Physical Exam General [...] 0.0 BASO# 0.0 IG# 0.06 NRBC# 0.00 MANDIFF No 0235 Special Chemistry LACTATE3 2.4 (H) 3 Coagulation PT 11.2 PTT 23.0 (L) INR 1.1 (H) 2316 2 of 3 Consult History and Physical [facility] Name Case, Rustam Menchaca Date of Service 0948 [id number] (M) Attending GUILHERME LACY Admitted [id number] Discharged Primary STEVEN Graham - Ct Ct Scanning [id number] 2230 Special Chemistry LACTATE 2.2 (H) 2230 [...] 0.0 BASO# 0.0 IG# 0.10 NRBC# 0.00 MANDIFF No Procedures and Surgeries None Assessment/Plan acute urinary retention, urosepsis recommend leaving current Hicks catheter in for a minimum of 3-5 days, continue tamsulosin. Agree with broad-spectrum antibiotics pending urine culture results. Patient will likely need definitive bladder outlet obstruction surgery in the near future once he recovers from current infection. My office will contact the patient to schedule voiding trial next week. Electronically signed by KELY LACY on 0940 3 of 3 CC'ed Logic: Ordering Provider: NOL[place] Daniels [facility] & [place] 05/01/2025 15:46:03 Procedures Surgical History Date Name Laterality Status Provider Name and Address Organization Details Recorded Time 5 Hicks Catheter Removal active Krystal Felipe [facility] [place] 05/06/2025 14:19:20 5 Other completed Kristen Cassi DE SOUZA - [facility] [place] 02/13/2025 10:20:16 Imaging Results None recorded. Procedure Notes None recorded. Medical Equipment None Reported. Allergies No known drug allergies Medications Name Sig Start Date Stop Date Status Note LastModified by Organization Details LastModified Time doxycycline hyclate 100 mg capsule TAKE 1 CAPSULE BY MOUTH TWICE A DAY FOR 30 DAYS 04/08 completed Not Available Not Available Not Available meloxicam 15 mg tablet Take 1 tablet every day by oral route for 14 days. 03/06 completed Not Available Not Available Not Available phenazopyri dine 200 mg tablet TAKE 1 TABLET BY MOUTH EVERY 8 HOURS NEEDED FOR BURNING UPON URINATION active Not Available Not Available No t Available ciprofloxac in 500 mg tablet 1 TABLET BY MOUTH TWICE A DAY FOR 5 DAY(S) active Not Available Not Available No t Available sulfamethox azole 800 mg-trimetho prim 160 mg tablet TAKE 1 TABLET BY MOUTH EVERY 12 HOURS FOR 28 DAYS active Not Available Not Available No t Available tramadol 50 mg tablet TAKE 1 TABLET BY MOUTH EVERY SIX HOURS NEEDED FOR MODERATE PAIN 4-6 PAIN SCALE active Not Available Not Available No t Available tamsulosin 0.4 mg capsule TAKE 1 CAPSULE BY MOUTH EVERY DAY AT BEDTIME FOR 30 DAYS active Not Available Not Available No t Available cefdinir 300 mg capsule TAKE 1 CAPSULE BY MOUTH TWICE A DAY active Not Available Not Available No t Available Vitals Date Recorded Body height Body mass index (BMI) Body weight Oxygen saturation Oxygen saturation in Arterial blood by Pulse oximetry Heart rate Systolic And Diastolic Provider Name and Address Organization Details Last Updated DateTime 5 182.88 cm 32.9 kg/m2 187996. 23 g 95 % 95 % 74 /min 158/98 mm[Hg] Kristen [facility] [place] 5 10:19:37 Date Recorded Body height Body mass index (BMI) Body weight Body temperature Oxygen saturation Oxygen saturation in Arterial blood by Pulse oximetry Heart rate Systolic And Diastolic Provider Name and Address Organization Details Last Updated DateTime 5 182.88 cm 32.8 kg/m2 360886. 35 g 98.8 [degF] 97 % 97 % 83 /min 148/83 mm[Hg] Krystal [facility] [place] 5 13:46:04 Date Recorded Body height Body mass index (BMI) Body weight Oxygen saturation Oxygen saturation in Arterial blood by Pulse oximetry Heart rate Heart rate Systolic And Diastolic Provider Name and Address Organization Details Last Updated DateTime 5 182.88 cm 33.1 kg/m2 018050. 82 g 95 % 95 % 82 /min 82 /min 146/82 mm[Hg] Lynsey Gibbonsotefito [facility] [place] 5 11:21:01 Date Recorded Body height Body mass index (BMI) Body weight Body temperature Oxygen saturation Oxygen saturation in Arterial blood by Pulse oximetry Heart rate Provider Name and Address Organization Details Last Updated DateTime 5 182.88 cm 33.1 kg/m2 086770. 26 g 97.9 [degF] 96 % 96 % 88 /min Krystal [facility] [place] 5 10:39:00 Social History Question Answer Notes LastModified by Organizat ion Details LastModified Time Tobacco Smoking Status Never Smoker Kristen [place], [place] [facility] [place] 02/13/2025 10:20:12 Do You Have An Advance Directive? No Information not available 02/13/2025 Are You Blind Or Do You Have Difficulty Seeing? No Information not available 02/13/2025 What Was The Date Of Your Most Recent Tobacco Screening? 02/05/2025 Information not available 02/13/2025 Are You Passively Exposed To Smoke? No Information not available 02/13/2025 Sex: Unknown Functional Status Question Answer Note LastModified by Organizat ion Details LastModified Time Do you use any illicit or recreational drugs? No Information not available 02/13/2025 What is your level of alcohol consumption? None Information not available 02/13/2025 What is your exercise level? None Information not available 02/13/2025 Mental Status Question Answer Note LastModified by Organization D etails LastModified Time Do you feel stressed (tense, restless, nervous, or anxious, or unable to sleep at night)? [id number] Information not available 02/13/2025 Family History Relationship Description Onset Age of this Age Resolved Age Notes LastModified by Organization Details LastModified Time Mother Mother Not available 2024 10:20:46 Medical History Condition Response Kidney Stones Y Past Encounters Encounter ID Performer Location Encounter Start Date Encounter Closed Date Diagnosis/Indication Diagnosis SNOMED-CT Code Diagnosis ICD10 Code Diagnosis IMO Codes Diagnosis Note [id number] FREDY EDGE MD [facility] [address] [facility] [address] [place] [address] 02/13/2025 09:49:56 02/13/2025 10:30:19 Acute prostatitis 76783966 N41.0 56196 Increased frequency of urination 080200436 R35.0 28963 Dysuria 69038193 R30.0 [id number] FREDY EDGE MD [facility] [address] 04/08/2025 13:34:45 04/08/2025 14:05:47 Acute prostatitis 56170718 N41.0 13681 Microscopic hematuria 19 0999766 R31.29 002679 Urgent hiren kishore to urinate 00398551 R39.15 [id number] FREDY EDGE MD [facility] 00 [address] [facility] [address] [place] [address] 04/22/2025 10:54:27 04/22/2025 11:44:07 Increased frequency of urination 427091696 R35.0 903132 [id number] FREDY EDGE MD [facility] 00 [address] [facility] [address] [place] [address] 05/06/2025 09:44:10 05/06/2025 14:21:19 Health Concerns Section Related Observation LastModified by Organization Detai ls LastModified Time None Recorded Concern Status LastModified by Organization Details LastModified Time None Recorded Advance Directives Directive N: Payers Insurance Date Sequence Insurance Name Policy Number Policy Treviño Covered Member ID Treviño Member ID Guarantor Name 05/05/2025 1 [place] (MEDICARE REPLACEMENT REGIONAL PPO) [id number] Rustam Case [id number] Rustam Case Notes Date Note Type Note Provider Name and Address Organization Details Recorded Time 02/13/2025 text/html 02/13/25 57-qjtg-pdf-male referred to my office for hematuria and dysuria.Rustam Mcgill is a 74-year-old male who presents for a new patient visit. He has been experiencing urinary frequency, burning, and occasional blood in his urine for approximately three months. Initially, he noticed these symptoms after waking up at night, but they have progressively worsened. He reports increased urinary frequency, particularly when moving around or after sitting for a while. The volume of urine is minimal, and burning sensations intensify as the day progresses. He observed a hint of blood in his urine on the first day of symptoms but has not seen clots. He denies difficulty initiating urination, straining, or feeling incomplete bladder emptying. He has no history of smoking and no known family history of prostate issues. He previously consulted Dr. Palomino, who referred him to this clinic. Cultures performed earlier did not isolate any bacteria. He has no known allergies and is not currently taking any medications. He reports occasional sun exposure and has noticed some moles. He describes a sensation of bulging or pressure in the bladder area, particularly when coughing or sitting down. He has experienced episodes of urgency where he has seconds to reach the restroom, leading to occasional accidents. He also reports generalized body pain, which he describes as a creepy or giddy sensation, and has been taking naproxen and other afgn-gff-twpaasd pain relievers nightly for relief. 12/27/24 CT abd pel w/w/o ([facility]): Impression: 1. No upper urinary tract obstruction or filling defect. 2. Left renal mass 19mm, without enhancement consistent with a cyst. A posterior left 6mm renal mass is too small to definitively characterize without contract but also likely represent a renal cyst. 3. Moderate bladder wall thickening up to 6mm is present, concerning for cystitis.12/12/24 Hgb 16.0, Hct 50.0, BUN 31, Cr 1.20, GFR UA: Blood 2+, WBC occasional, RBC 3-5, Epith 5-10, Uric Acid Irina 4+, Bacteria 1+, urine Cr 189, Micro/Cr ratio 458.1; UC: no growth [id number]/25/24 UA: Blood large; UC: no growth 48hrs FREDY EDGE MD [address] [facility], [place], [address], [facility] 02/13/2025 12:53:10 04/08/2025 text/html 04/08/25 Patient returns to my office follow up acute prostatitis, urinary frequency, dysuria, and PSA lab results.Rustam Mcgill is a 74-year-old male who presents for a follow-up visit. He reports that his symptoms have returned to their previous state after completing a course of antibiotics. While traveling to [facility], he experienced improvement in frequency and urgency, which he attributes either to the antibiotics or to having more control over his environment. He denies experiencing burning during the trip but notes that burning occurs when frequency increases and voiding is incomplete. When voiding completely, he describes a burning sensation that he finds severe. He states that physical activity, such as yard work, exacerbates his symptoms, leading to significant fatigue and difficulty reaching the bathroom. He denies visible blood in his urine but mentions ongoing symptoms today. He describes variability in the force of his urinary stream, noting that it is weaker in the mornings after prolonged sleep but improves throughout the day. He also reports dribbling and difficulty predicting the direction of the stream. He is not currently taking tamsulosin or Flomax. He denies any known medication allergies. The patient recalls a prior CT scan that indicated signs of an intestinal condition, possibly Crohn's disease or diverticulosis, with inflammatory changes. He associates some of his symptoms with a sensation near the rectum. He denies experiencing air during urination. He notes that sleeping on his side provides some relief from burning and dribbling symptoms. --------- 02/13/25 51-uuel-vlk-male referred to my office for hematuria and dysuria.Rustam Mcgill is a 74-year-old male who presents for a new patient visit. He has been experiencing urinary frequency, burning, and occasional blood in his urine for approximately three months. Initially, he noticed these symptoms after waking up at night, but they have progressively worsened. He reports increased urinary frequency, particularly when moving around or after sitting for a while. The volume of urine is minimal, and burning sensations intensify as the day progresses. He observed a hint of blood in his urine on the first day of symptoms but has not seen clots. He denies difficulty initiating urination, straining, or feeling incomplete bladder emptying. He has no history of smoking and no known family history of prostate issues. He previously consulted Dr. Palomino, who referred him to this clinic. Cultures performed earlier did not isolate any bacteria. He has no known allergies and is not currently taking any medications. He reports occasional sun exposure and has noticed some moles. He describes a sensation of bulging or pressure in the bladder area, particularly when coughing or sitting down. He has experienced episodes of urgency where he has seconds to reach the restroom, leading to occasional accidents. He also reports generalized body pain, which he describes as a creepy or giddy sensation, and has been taking naproxen and other yvku-agg-gwvsgpk pain relievers nightly for relief. 03/27/[address] abd pel w/w/o ([facility]): Impression: 1. No upper urinary tract obstruction or filling defect. 2. Left renal mass 19mm, without enhancement consistent with a cyst. A posterior left 6mm renal mass is too small to definitively characterize without contract but also likely represent a renal cyst. 3. Moderate bladder wall thickening up to 6mm is present, concerning for cystitis.12/12/24 Hgb 16.0, Hct 50.0, BUN 31, Cr 1.20, GFR UA: Blood 2+, WBC occasional, RBC 3-5, Epith 5-10, Uric Acid Irina 4+, Bacteria 1+, urine Cr 189, Micro/Cr ratio 458.1; UC: no growth [id number]/25/24 UA: Blood large; UC: no growth 48hrs FREDY EDGE MD [address], [place], [address], [facility] & [place] 04/29/2025 07:48:03 04/22/2025 text/html 04/22/25 Patient returns to my office for cystoscopy.Rustam Mcgill is a 74-year-old male who presents for cystoscopy due to symptoms of urinary irritation and incomplete bladder emptying. He reports burning sensations during urination, particularly at the point of emptying, and frequent dribbling. 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 He has been taking Flomax, which he initially stopped but resumed after noticing a difference in symptoms. He has also been on Bactrim for approximately two weeks, with plans to complete a 30-day course. He has a history of moderate prostate enlargement and bladder thickening noted on a prior CT scan performed at [facility] within the last three months. However, there was no mention of bladder stones in the report. He has experienced blood in his urine, prompting further evaluation.-------- -------- 04/08/25 Patient returns to my office follow up acute prostatitis, urinary frequency, dysuria, and PSA lab results. Rustam Mcgill is a 74-year-old male who presents for a follow-up visit. He reports that his symptoms have returned to their previous state after completing a course of antibiotics. While traveling to [facility], he experienced improvement in frequency and urgency, which he attributes either to the antibiotics or to having more control over his environment. He denies experiencing burning during the trip but notes that burning occurs when frequency increases and voiding is incomplete. When voiding completely, he describes a burning sensation that he finds severe. He states that physical activity, such as yard work, exacerbates his symptoms, leading to significant fatigue and difficulty reaching the bathroom. He denies visible blood in his urine but mentions ongoing symptoms today.He describes variability in the force of his urinary stream, noting that it is weaker in the mornings after prolonged sleep but improves throughout the day. He also reports dribbling and difficulty predicting the direction of the stream. He is not currently taking tamsulosin or Flomax. He denies any known medication allergies.The patient recalls a prior CT scan that indicated signs of an intestinal condition, possibly Crohn's disease or diverticulosis, with inflammatory changes. He associates some of his symptoms with a sensation near the rectum. He denies experiencing air during urination. He notes that sleeping on his side provides some relief from burning and dribbling symptoms. --------- 02/13/25757540-apwy-fym -male referred to my office for hematuria and dysuria.Rustam Mcgill is a 74-year-old male who presents for a new patient visit. He has been experiencing urinary frequency, burning, and occasional blood in his urine for approximately three months. Initially, he noticed these symptoms after waking up at night, but they have progressively worsened. He reports increased urinary frequency, particularly when moving around or after sitting for a while. The volume of urine is minimal, and burning sensations intensify as the day progresses. He observed a hint of blood in his urine on the first day of symptoms but has not seen clots. He denies difficulty initiating urination, straining, or feeling incomplete bladder emptying.He has no history of smoking and no known family history of prostate issues. He previously consulted Dr. Palomino, who referred him to this clinic. Cultures performed earlier did not isolate any bacteria. He has no known allergies and is not currently taking any medications. He reports occasional sun exposure and has noticed some moles.He describes a sensation of bulging or pressure in the bladder area, particularly when coughing or sitting down. He has experienced episodes of urgency where he has seconds to reach the restroom, leading to occasional accidents. He also reports generalized body pain, which he describes as a creepy or giddy sensation, and has been taking naproxen and other kgeb-zvp-ximuvbs pain relievers nightly for relief. PSA 2. CT abd pel w/w/o ([facility]): Impression: 1. No upper urinary tract obstruction or filling defect. 2. Left renal mass 19mm, without enhancement consistent with a cyst. A posterior left 6mm renal mass is too small to definitively characterize without contract but also likely represent a renal cyst. 3. Moderate bladder wall thickening up to 6mm is present, concerning for cystitis.12/12/24 Hgb 16.0, Hct 50.0, BUN 31, Cr 1.20, GFR UA: Blood 2+, WBC occasional, RBC 3-5, Epith 5-10, Uric Acid Irina 4+, Bacteria 1+, urine Cr 189, Micro/Cr ratio 458.1; UC: no growth [id number]/25/24 UA: Blood large; UC: no growth 48hrs FREDY EDGE MD [address] [facility], [place], [address], [facility] [place] & [place] 04/23/2025 09:40:33
--- OUTSIDE RECORDS SUMMARY | 2025-05-07 02:00 | XMS_ITS | Continuity of Care Document ---
Author Organization [facility] Address [address] [place] [address] Assessment Encounter Date Assessment Date Assessment LastModified by Organization Details LastModified Time 04/08/2025 04/08/2025 ASSESSMENT: Rustam Mcgill is a [...] the patient. [email or web address] Not available 04/08/2025 14:04:44 Plan of Treatment Reminders Order Date Submit Date Provider Last Modified By Organization Details Last Modified Time Details Appointments OV EST 15 2024 03:15P Barbi EDGE MD Not available Not available Not available Lab urinalysi s, dipstick 2024 025 [email or web address], [address], [place], [address], 04/08/2025 14:04:54 Referral None recorded. Procedures bladder scan (PROC) 2024 [email or web address] [place] [address], [address] [facility] [address], [place], [address], 04/08/2025 14:04:54 Surgeries None recorded. Imaging None recorded. Medication Orders Bactrim DS 800 mg-160 mg tablet 2024 [id number], [address] [place], [address], 04/08/2025 14:04:56 tamsulosi n 0.4 mg capsule 2024 025 [facility][id number], [address] [place], [address], 04/08/2025 14:04:56 Patient TargetsNo targets recorded. Patient InstructionsNo instructions recorded. Reason for Referral None Reported. Results Created Date Observation Date Name Description Value Unit Range Abnormal Flag Note LastModifiedBy Organization Detail LastModifiedTime 04/08/2004/08/2025 urina lysis , dipst ick Leukocytes (reference range) small Not Available [facility] [place] [address] [address] [facility] [facility] [address], [place], [address], 04/08/2025 13:40:21 04/08/2004/08/2025 urina lysis , dipst ick Nitrite (reference range:) negati ve Not Available [place] [address] [address] [facility] [address], [place], [address], 04/08/2025 13:40:21 04/08/2004/08/2025 urina lysis , dipst ick Urobilinogen (reference range) 0.2 Not Available [facility] [place] [address] [address] [facility] [address], [place], [address], 04/08/2025 13:40:21 04/08/20 25 04/08/2025 urina lysis , dipst ick Protein (reference range) 100 Not Available [facility] [address], [place], [address], 04/08/2025 13:40:21 04/08/20 25 04/08/2025 urina lysis , dipst ick pH (reference range 5-8.5) 5.0 Not Available [facility] [place] [address] [address] [facility] [address], [place], [address], 04/08/2025 13:40:21 04/08/20 25 04/08/2025 urina lysis , dipst ick Blood (reference range:) modera te Not Available [place] [address] [address] [facility] [address], [place], [address], 04/08/2025 13:40:21 04/08/20 25 04/08/2025 urina lysis , dipst ick Specific [place] (reference range) 1.025 Not Available [place] [address] [address] [facility] [address], [place], [address], 04/08/2025 13:40:21 04/08/20 25 04/08/2025 urina lysis , dipst ick Ketone (reference range) negati ve Not Available [place] [address] [address] [facility] [address], [place], [address], 04/08/2025 13:40:21 04/08/20 25 04/08/2025 urina lysis , dipst ick Bilirubin (reference range) negati ve Not Available [place] [address] [address] [facility] [address], [place], [address], 04/08/2025 13:40:21 04/08/20 25 04/08/2025 urina lysis , dipst ick Glucose (reference range) negati ve Not Available [facility], [place], [address], 04/08/2025 13:40:21 04/08/2004/08/2025 urina lysis , dipst ick Color (reference range: yellow-brown ) Yellow Not Available [place] [address] [address], [place], [address], 04/08/2025 13:40:21 04/08/2004/08/2025 bladd er scan (PROC ) Calculated Residual Urine: 0mL Not Available [place] [address], [place], [address], 04/08/2025 13:40:42 04/22/20 25 12/27/2024 CT, abdom en + pelvi s, w/wo contr ast No observ ation record ed. [address], [place], [address], 04/23/2025 14:53:11 04/24/20 25 12/27/2024 CT, abdom en + pelvi s, w/wo contr ast No observ ation record ed. [address], [place], [address], 05/06/2025 13:57:30 Result Notes None recorded. Problems Name Problem SNOMED Code Status Onset Date Resolution Date Notes Provider Name and Address Organization Details Recorded Time Acute prostatitis 96128631 Active 2024 FREDY EDGE MD [address], [place], [address] , [facility] 10:29:02 Increased frequency of urination 443323022 Active 2024 FREDY EDGE MD [address], [place], [address] , [facility] & [place] 5 09:40:04 Dysuria 48438900 Active 2024 FREDY EDGE MD [address], [place], [address] , [facility] & [place] 5 10:29:10 Microscopic hematuria 614782981 Active [address], [facility] [address] , [facility] & [place] 5 14:04:11 Urgent desire to urinate 55273571 Active [address], [facility] [address] , [facility] & [place] 14:04:15 Problem Notes None recorded. Procedures Surgical History Date Name Laterality Status Provider Name and Address Organization Details Recorded Time 5 Hicks Catheter Removal active Krystal Felipe [facility] & [place] 05/06/2025 14:19:20 5 Other completed Kristen Ye [facility] & [place] 02/13/2025 10:20:16 Imaging Results None recorded. Procedure [...] Updated DateTime 5 182.88 cm 32.8 kg/m2 985373. 35 g 98.8 [degF] 97 % 97 % 83 /min 148/83 mm[Hg] Krystal Wang [facility] & [place] 13:46:04 Date Recorded Body height Body mass index (BMI) Body weight Oxygen saturation Oxygen saturation in Arterial blood by Pulse oximetry Heart rate Heart rate Systolic And Diastolic Provider Name and Address Organization Details Last Updated DateTime 182.88 cm 33.1 kg/m2 236929. 82 g 95 % 95 % 82 /min 82 /min 146/82 mm[Hg] Lynsey Gibbonsoten [facility] & [place] 11:21:01 Social History Question Answer Notes LastModified by [employer] Details LastModified Time Tobacco Smoking Status Never Smoker [facility] [place] 02/13/2025 10:20:12 Do You Have An Advance Directive? No Information not available 02/13/2025 Are You Blind Or Do You Have Difficulty Seeing? No Information not available 02/13/2025 What Was The Date Of Your Most Recent Tobacco Screening? 02/05/2025 Information not available 02/13/2025 Are You Passively Exposed To Smoke? No Information not available 02/13/2025 Sex: Unknown Functional Status Question Answer Note LastModified by [employer] Details LastModified Time Do you use any [...] anxious, or unable to sleep at night)? [id number] Information not available 02/13/2025 Family History Relationship Description Onset Age of this Age Resolved Age Notes LastModified by Organization Details LastModified Time Mother Mother Not available 2024 10:20:46 Medical History Condition Response Kidney Stones Y Past Encounters Encounter ID Performer Location Encounter Start Date Encounter Closed Date Diagnosis/Indication Diagnosis SNOMED-CT Code Diagnosis ICD10 Code Diagnosis IMO Codes Diagnosis Note [id number] FREDY EDGE MD [facility] [place] [address] 04/08/2025 13:34:45 04/08/2025 14:05:47 Acute prostatitis 05526727 N41.0 10056 Microscopic hematuria 19 9214923 R31.29 [id number] Urgent hiren kishore to urinate 06196469 R39.15 [id number] Health Concerns Section Related Observation LastModified by Organization Detai ls LastModified Time None Recorded Concern Status LastModified by Organization Details LastModified Time None Recorded Payers Encounter Date Sequence Insurance Name Policy Number Policy Treviño Covered Member ID Treviño Member ID Guarantor Name 04/08/2025 1 KAREL-NOLVIA: [facility] (MEDICARE REPLACEMENT REGIONAL PPO) [id number] Rustam Case [id number] 24 Rustam Case Notes Date Note Type Note Provider Name and Address Organization Details Recorded Time 04/08/2025 text/html 04/08/25 Patient returns to my office follow up acute prostatitis, urinary frequency, dysuria, and PSA lab results.Rustam Mcgill is a 74-year-old male who presents for a follow-up visit. He reports that his symptoms have returned to their previous state after completing a course of antibiotics. While traveling to [facility], he experienced improvement in frequency and urgency, [...] from burning and dribbling symptoms. --------- 02/13/25 83-gsrq-bnn-male referred to my office for hematuria and [...] and has been taking naproxen and other hcdo-sqi-atvkrmq pain relievers nightly for relief. 03/27/[address] abd pel w/w/o ([facility]): Impression: 1. No upper urinary tract obstruction [...] 189, Micro/Cr ratio 458.1; UC: no growth 13csh4010/25/24 UA: Blood large; UC: no growth 48hrs FREDY EDGE MD [address], [place], [address], [facility] & [place] 04/29/2025 07:48:03 04/22/2025 text/html 04/22/25 Patient returns [...] on a prior CT scan performed at [facility] within the last three months. However, there [...] a course of antibiotics. While traveling to [facility], he experienced improvement in frequency and urgency, [...] relief from burning and dribbling symptoms. --------- 02/13/25754985-svli-cus -male referred to my office for hematuria [...] and has been taking naproxen and other lvfl-bcj-suptygt pain relievers nightly for relief. PSA 2. CT abd pel w/w/o ([facility]): Impression: 1. No upper urinary tract obstruction [...] 189, Micro/Cr ratio 458.1; UC: no growth [id number]/25/24 UA: Blood large; UC: no growth 48hrs FREDY EDGE MD [address], [place], [address], [facility] [place] & [place] 04/23/2025 09:40:33
--- OUTSIDE RECORDS SUMMARY | 2025-05-07 02:00 | XMS_ITS | Continuity of Care Document ---
Author Organization [facility] & [place] [address] Address [address] [facility] [address] [place] [address] Assessment Encounter Date Assessment Date Assessment LastModified by Organization Details LastModified Time 04/22/2025 04/22/2025 ASSESSMENT: Rustam Mcgill is a [...] until the stones are removed. 5. Contact [facility] to request a reread of the prior [...] Lab urinalysi s, dipstick 2024 025 [email or web address] [place] [address], [address], [place], [address], 04/23/2025 09:40:16 Referral None recorded. Procedures None recorded. Surgeries cystolith olapaxy (SURG) 2024 025 [email or web address] Not available 04/28/2025 13:36:43 Imaging None recorded. Medication Orders None recorded. Patient TargetsNo targets recorded. Patient InstructionsNo instructions recorded. Reason for Referral None Reported. Results Created Date Observation Date Name Description Value Unit Range Abnormal Flag Note LastModifiedBy Organization Detail LastModifiedTime 04/08/2004/08/2025 urina lysis , dipst ick Leukocytes (reference range) small Not Available [place] [address] [address] [facility] [address], [place], [address], 04/08/2025 13:40:21 04/08/20 25 04/08/2025 urina lysis , dipst ick Nitrite (reference range:) negati ve Not Available [place] [address] [address] [facility] [address], [place], [address], 04/08/2025 13:40:21 04/08/20 25 04/08/2025 urina lysis , dipst ick Urobilinogen (reference range) 0.2 Not Available [place] [address] [address] [facility] [address], [place], [address], 04/08/2025 13:40:21 04/08/2004/08/2025 urina lysis , dipst ick Protein (reference range) 100 Not Available [place] [address] [address] [facility] [address], [place], [address], 04/08/2025 13:40:21 04/08/20 25 04/08/2025 urina lysis , dipst ick pH (reference range 5-8.5) 5.0 Not Available [place] [address] [address] [facility] [address], [place], [address], 04/08/2025 13:40:21 04/08/2004/08/2025 urina lysis , dipst ick Blood (reference range:) modera te Not Available [place] [address] [address] [facility] [address], [place], [address], 04/08/2025 13:40:21 04/08/2004/08/2025 urina lysis , dipst ick Specific [place] (reference range) 1.025 Not Available [place] [address] [address] [facility] [address], [place], [address], 04/08/2025 13:40:21 04/08/2004/08/2025 urina lysis , dipst ick Ketone (reference range) negati ve Not Available [place] [address] [address] [facility] [address], [place], [address], 04/08/2025 13:40:21 04/08/2004/08/2025 urina lysis , dipst ick Bilirubin (reference range) negati ve Not Available [place] [address] [address] [facility] [address], [place], [address], 04/08/2025 13:40:21 04/08/2004/08/2025 urina lysis , dipst ick Glucose (reference range) negati ve Not Available [place] [address] [address] [facility] [address], [place], [address], 04/08/2025 13:40:21 04/08/2004/08/2025 urina lysis , dipst ick Color (reference range: yellow-brown ) Yellow Not Available [place] [address] [address] [facility] [address], [place], [address], 04/08/2025 13:40:21 04/08/2004/08/2025 bladd er scan (PROC ) Calculated Residual Urine: 0mL Not Available [place] [address] [address] [facility] [address], [place], [address], 04/08/2025 13:40:42 04/22/2004/22/2025 urina lysis , dipst ick Leukocytes (reference range) negati ve Not Available [place] [address] [address] [facility] [address], [place], [address], 04/22/2025 11:21:29 04/22/2004/22/2025 urina lysis , dipst ick Nitrite (reference range:) negati ve Not Available [place] [address] [address] [facility] [address], [place], [address], 04/22/2025 11:21:29 04/22/20 25 04/22/2025 urina lysis , dipst ick Urobilinogen (reference range) 0.2 Not Available [place] [address] [address] [facility] [address], [place], [address], 04/22/2025 11:21:29 04/22/20 25 04/22/2025 urina lysis , dipst ick Protein (reference range) 30 Not Available [place] [address] [address] [facility] [address], [place], [address], 04/22/2025 11:21:29 04/22/20 25 04/22/2025 urina lysis , dipst ick pH (reference range 5-8.5) 5.5 Not Available [place] [address] [address] [facility] [address], [place], [address], 04/22/2025 11:21:29 04/22/20 25 04/22/2025 urina lysis , dipst ick Blood (reference range:) small Not Available [place] [address], [place], [address], 04/22/2025 11:21:29 04/22/2004/22/2025 urina lysis , dipst ick Specific [place] (reference range) 1.030 Not Available [place] [address] [address] [facility] [address], [place], [address], 04/22/2025 11:21:29 04/22/2004/22/2025 urina lysis , dipst ick Ketone (reference range) negati ve Not Available [place] [address] [address] [facility] [address], [place], [address], 04/22/2025 11:21:29 04/22/2004/22/2025 urina lysis , dipst ick Bilirubin (reference range) negati ve Not Available [place] [address] [address] [facility] [address], [place], [address], 04/22/2025 11:21:29 04/22/2004/22/2025 urina lysis , dipst ick Glucose (reference range) negati ve Not Available [place] [address] [address] [facility] [address], [place], [address], 04/22/2025 11:21:29 04/22/2004/22/2025 urina lysis , dipst ick Color (reference range: yellow-brown ) Dark Yellow Not Available [place] [address] [address] [facility] [address], [place], [address], 04/22/2025 11:21:29 04/22/20 25 12/27/2024 CT, abdom en + pelvi s, w/wo contr ast No observ ation record ed. [email or web address] [facility] [address], [place], [address], 04/23/2025 14:53:11 04/24/20 25 12/27/2024 CT, abdom en + pelvi s, w/wo contr ast No observ ation record ed. [facility] [address], [place], [address], 05/06/2025 13:57:30 Result Notes None recorded. Problems Name Problem SNOMED Code Status Onset Date Resolution Date Notes Provider Name and Address Organization Details Recorded Time Acute prostatitis 33886626 Active 2024 FREDY EDGE MD [address], [place], [address] , [place] [facility] [place] & [place] 10:29:02 Increased frequency of urination 507185467 Active 2024 FREDY EDGE MD [address], [place], [address] , [place] [facility] [place] & [place] 09:40:04 Dysuria 95841934 Active 2024 FREDY EDGE MD [address], [place], [address] , [place] [facility] 10:29:10 Microscopic hematuria 486234942 Active 2024 FREDY EDGE MD [address], [place], [address] , [place] [facility] [place] 14:04:11 Urgent desire to urinate 50549682 Active 2024 FREDY EDGE MD [address], [place], [address] , [place] [facility] [place] & [place] 14:04:15 Problem Notes None recorded. Procedures Surgical History Date Name Laterality Status Provider Name and Address Organization Details Recorded Time Hicks Catheter Removal active Krystal Wang [place] 05/06/2025 14:19:20 5 Other completed Kristen Ye [place] 02/13/2025 10:20:16 Imaging Results None recorded. Procedure [...] Last Updated DateTime 182.88 cm 33.1 kg/m2 704139. 82 g 95 % 95 % 82 /min 82 /min 146/82 mm[Hg] Lynsey Guardado [facility] & [place] 11:21:01 Social History Question Answer Notes LastModified by Organizat ion Details LastModified Time Tobacco Smoking Status Never Smoker Kristen westbrook, [facility] & [place] 02/13/2025 10:20:12 Do You Have An Advance [...] anxious, or unable to sleep at night)? [id number] Information not available 02/13/2025 Family History Relationship Description Onset Age of this Age Resolved Age Notes LastModified by Organization Details LastModified Time Mother Mother Not available 2024 10:20:46 Medical History Condition Response Kidney Stones Y Past Encounters Encounter ID Performer Location Encounter Start Date Encounter Closed Date Diagnosis/Indication Diagnosis SNOMED-CT Code Diagnosis ICD10 Code Diagnosis IMO Codes Diagnosis Note [id number] FREDY EDGE MD [facility] Urology-1 [address] [facility] [address] [place] [address] 04/08/2025 13:34:45 04/08/2025 14:05:47 Acute prostatitis 13655950 N41.0 40957 Microscopic hematuria 19 5291458 R31.29 568811 Urgent hiren kishore to urinate 98334786 R39.15 [id number] FREDY EDGE MD [facility] Urology-1 00 [address] [facility] [address] [place] [address] 04/22/2025 10:54:27 04/22/2025 11:44:07 Increased frequency of urination 796176956 R35.0 [id number] Health Concerns Section Related Observation LastModified by Organization Detai ls LastModified Time None Recorded Concern Status LastModified by Organization Details LastModified Time None Recorded Payers Encounter Date Sequence Insurance Name Policy Number Policy Treviño Covered Member ID Treviño Member ID Guarantor Name 04/22/2025 1 [place] MED[place] (MEDICARE REPLACEMENT REGIONAL O) [id number] Rustam Mcgill [id number] Rustam Case Notes Date Note Type Note Provider Name and Address Organization Details Recorded Time 04/22/2025 text/html 04/22/25 Patient returns to my [...] on a prior CT scan performed at [facility] within the last three months. However, there [...] a course of antibiotics. While traveling to [facility], he experienced improvement in frequency and urgency, [...] relief from burning and dribbling symptoms. --------- 02/13/25752356-yjob-dit -male referred to my office for hematuria [...] and has been taking naproxen and other pnlu-ctv-umhcaib pain relievers nightly for relief. PSA 2. CT abd pel w/w/o ([facility]): Impression: 1. No upper urinary [...] 189, Micro/Cr ratio 458.1; UC: no growth [id number]/25/24 UA: Blood large; UC: no growth 48hrs FREDY EDGE MD [address], [place], [address] & [place] 04/23/2025 09:40:33
--- OUTSIDE RECORDS SUMMARY | 2025-05-07 02:00 | XMS_ITS | Clinical Summary ---
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 Name Role Phone Eh Palomino DO Primary Care Provider [phone] Social History Tobacco Use Types Packs/Day Years Used Date Smoking Tobacco: Never Assessed Sex and Gender Information Value Date Recorded Sex Assigned at Not on file Legal Sex Male 7:32 PM EDT Gender Identity Not on file Sexual Orientation Not on file Plan of Treatment Health Maintenance Due Date Last Done Comments [facility]-Depression Screening 1950 [facility]-/Child/Adol SDOH Screenings 1950 [facility]- SDOH Screenings 12/21/1967 [facility]-Adult SDOH Screenings 12/21/1967 [facility]-DTaP,Tdap,and Td Vaccine s (1 - Tdap) 1968 CT Colonography 1994 Colonoscopy 1994 FIT-DNA 1994 FIT 1994 FOBT 1994 Sigmoidoscopy 1994 [facility]-Colorectal Cancer Screening 1994 [facility]-Pneumococcal Vaccine: 50 + Years (1 of 1 - PCV) 12/21/1999 [facility]-Zoster Vaccines (1 of 2) 12/21/1999 [facility]-RSV Vaccine: 60+ Years o r (1 - 1-dose 75+ series) 2024 [id number]-74 Vaccine ( - 24-25 season) 2025 [facility]-Influenza Vaccine (#1) 2025 HPV Vaccines Aged Out No longer [...] on patient's age to complete this topic Insurance [employer] MEDICARE Care 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
--- NOTE | 2025-05-07 02:06 | ED_ITS ---
Discharge Plan Disposition Patient Disposition: Home, Self-Care Prescriptions Prescriptions: No Action No Known Home Medications Referrals Follow up/Referrals: Eh Palomino DO [Primary Care Provider, Family Practice] - See instructions Activity Restrictions/Add. Instructions Additional Instructions/Restrictions: Please follow-up with your primary care provider. Please return to the emergency department if you develop any new or worsening symptoms or become concerned for your health. Clinical Impressions Clinical Impression: Acute urinary retention Instructions Patient Instructions: DI for Urinary Tract Infection (UTI), DI for Urinary Tract Infection in Children Print Language Print Language: Indonesian Discharge ED Provider: Cody Proctor General Adult HPI General Chief complaint: Urogenital-Male Stated complaint: cathater removed, trouble urinating Time Seen by Provider: 05/07/25 02:00 History of Present Illness HPI narrative: 74-year-old male presents for urinary retention. He had surgery to have a bladder stone removed in the last couple of weeks. He had urinary retention after the procedure and ended up having pyelonephritis and spent a few days in the hospital. He was discharged with a catheter in place and had it removed earlier today, about a week after discharge. He was able to pee at his follow- up appointment when they pulled the catheter. However, tonight he has not been able to pee any significant amount. Complaining of worsening lower abdominal fullness and pain. Denies any fever or flank pain. Related Data Home Medications ?Medication ?Instructions ?Recorded ?Confirmed No Known Home Medications 12/18/2412/01 Allergies Allergy/AdvReac Type Severity Reaction Status Date / Time No Known Allergies Allergy Verified 12/18/24 13:11 [facility] Disclaimer: The information contained in this section may have been updated after the patient was seen, as this information can be updated by other users. Medical History Burning with urination Surgical History History of hand surgery Social History (Updated 12/18/24 @ 13:16 by Noelle Valverde CMA) Smoking Status: Never smoker alcohol intake: current alcohol intake frequency: holidays/special occasions only substance use type: denies use current occupational status: retired Travel in the last 8 weeks?: None household members: spouse Have you lived/traveled outside US in past 30 days?: No Contact w/someone who lives/traveled outside US past 30 days?: No Exposure to someone with infectious disease in past 14 days?: No Do you have a fever (greater than 100.4 F or 38 C)?: No Have you tested positive for COVID-19?: No Exposed to someone with COVID-19 in past 14 days?: No Do you have a sore throat?: No Do you have a cough?: No Do you have any weakness?: No Do you have any diarrhea?: No Are you experiencing any unusual bleeding?: No Do you have any muscle aches/pain?: No Do you have any abdominal pain?: No Are you experiencing loss of taste or smell?: No Other Medical History Have you received the Pneumonia Vaccine: No ROS Obtained: Yes All systems reviewed & no additional complaints except as documented Physical Exam General General appearance: alert and in no apparent distress Head Head exam: atraumatic and normocephalic Eye Eye exam: Present normal appearance, PERRL and EOMI ENT ENT exam: Present normal oropharynx and normal external ear exam Neck Neck exam: Present normal inspection and full ROM Chest Chest inspection: Present normal inspection and symmetric chest wall rise; Absent tenderness Respiratory Respiratory exam: Present normal lung sounds bilaterally; Absent respiratory distress Cardiovascular Cardiovascular exam: Present regular rate and normal rhythm Abdominal Exam Abdominal exam: Present soft and tenderness (Suprapubic fullness and tenderness); Absent distention or guarding Extremities Exam Extremities exam: Present normal inspection; Absent edema or joint swelling Back Exam Back exam: Present normal inspection; Absent tenderness Neurological Exam Neurological exam: Present alert and oriented X3; Absent motor sensory deficit Psychiatric Psychiatric exam: Present normal affect and normal mood Skin Skin exam: Present warm, dry and normal color Lymphatic Lymphatic Findings: no adenopathy Medical Decision Making Medical Records Medical records reviewed: Yes I reviewed the patient's medical records. Screening: Per USPSTF and CDC recommendations, given the prevalence of disease in our [place] on, it is our hospital?s policy to screen for HIV and viral Hepatitis for all patients aged 18 and over and those with ongoing risk factors. Eber Inquiry Pt receiving controlled substance: No Eber was queried for this patient: No Vital Signs: 05/07/25 02:09 05/07/25 02:50 Temperature 98.2 F 98.2 F Temperature Source Oral Oral Pulse Rate 82 Pulse Rate [Left] 82 Respiratory Rate 17 17 Blood Pressure 197/97 H Blood Pressure [Right Arm] 197/97 H Blood Pressure Mean [Right Arm] 130 Blood Pressure Source Automatic Cuff Blood Pressure Source [Right Arm] Automatic Cuff Blood Pressure Position Supine Blood Pressure Position [Right Arm] Sitting 02 Sat by Pulse Oximetry 100 Oxygen Delivery Method Room Air Room Air Lab Data Lab results reviewed: Yes I reviewed the patient's lab results. Lab Results 05/07/25 02:25: Urine Color Yellow, Urine Appearance Clear, Urine pH 5.5, Ur Specific [place] 1.025, Urine Protein Negative, Urine Glucose (UA) Negative, Urine Ketones Negative, Urine Blood 1+ A, Urine Nitrate Negative, Urine Bilirubin Negative, Urine Urobilinogen 0.2, Ur Leukocyte Esterase Negative, Urine RBC 5-10 Orders (Tests/Meds): ORDERS Category Date Time Status UA [Urinalysis and Microscopic] Stat Lab 05/07/25 02:25 Completed Medical Decision Narrative: 74-year-old male with history of recent urinary retention presents for urinary retention after his catheter was pulled earlier today. History was obtained via interactive discussion with patient, family, chart review. On arrival, patient is [afebrile, hemodynamically stable, satting appropriately, alert, oriented x4, GCS 15], moving all extremities spontaneously. Full physical exam performed and significant for suprapubic fullness and tenderness. Bladder scan shows 500 Differential includes but is not limited to urinary retention, UTI, Johnathan. A Hicks catheter was placed. Urinalysis was independently turbid by me, no evidence of infection. Patient was discharged with Hicks in place and will follow-up with his team. Procedures Risk/Benefits of Procedure(s) Were Explained: Yes Critical Care Critical Care Time Critical Care Time: No
[2025-05-07 02:09] VITALS: BP 197/97; PULSE 82; RESP 17; TEMP 36.8; O2SAT 100; BMI 32.0
[2025-05-07 02:32] LABS: Microscopic, Urine URINE MICROSCOPIC (MICROSCOPIC)
[2025-05-07 02:34] LABS: Bilirubin,Urine Negative (Negative); Color,Urine YELLOW (Yellow); Glucose,Urine (UA) Negative (Negative); Ketones,Urine Negative (Negative); Leukocyte Esterase,Urine Negative (Negative); PH,Urine 5.5 (5.0-8.5); Protein,Urine Negative (Negative); Specific Gravity, Urine 1.025 (1.005-1.030); Urobilinogen,Urine 0.2 EU/dl (0.2)
[2025-05-07 02:50] VITALS: BP 197/97; PULSE 82; RESP 17; TEMP 36.8; O2SAT 100
== END 2025-05-07 03:16 | disposition home or self-care (01) ==
PROVIDERS: Emergency Provider Emergency Medicine; PCP Internal Medicine
DX: R33.9 Retention of urine, unspecified (principal)
CPT/HCPCS: 51702; 81001; 99283